=== PATIENT | male | born 1935 | race Caucasian/White ===

== ENCOUNTER 2022-02-27 10:53 | Outpatient (CLI) | payer MEDICARE, SELFPAY ==
[2022-02-27 22:15] LABS: Chloride* 103 mmol/L (96-114)
[2022-02-27 22:16] LABS: Albumin* 4.1 g/dL (3.3-5.0); Potassium* 4.2 mmol/L (3.6-5.1); Sodium* 139 mmol/L (135-149)
[2022-02-27 22:19] LABS: Alanine Aminotransferase* 18 U/L (4-50); Alkaline Phosphatase* 64 U/L (40-150); Aspartate Amino Transferase* 19 U/L (12-35); Bilirubin Total* 0.8 mg/dL (0.1-1.5); Blood Urea Nitrogen* 20 mg/dL (7-30); Calcium* 9.6 mg/dL (8.4-10.6); Carbon Dioxide* 28 mmol/L (20-32); Cholesterol* 120 mg/dL (90-199); Creatinine* 1.2 mg/dL (0.5-1.5); Estimated Glomerular Filt Rate 59 ml/min; Glucose* 136 mg/dL (60-115); Triglycerides* 208 mg/dL (40-149)
[2022-02-27 22:20] LABS: HDL Cholesterol* 29 mg/dL (>=40); LDL Cholesterol Calculated 49 mg/dL (<100)
[2022-02-27 22:29] LABS: Creatinine Urine 123.2 mg/dL
[2022-02-27 22:47] LABS: PSA Screen* 2.34 ng/mL (0.10-4.00)
[2022-02-28 02:45] LABS: Microalbumin Creatinine Ratio 220 mg/g (0-30); Microalbumin Urine 28 mg/dL
== END 2022-02-27 10:54 | disposition home or self-care (01) ==
PROVIDERS: PCP Family Medicine; Visit Provider Family Medicine
DX: Z00.00 Encounter for general adult medical examination without abnormal findings (principal); E11.40 Type 2 diabetes mellitus with diabetic neuropathy, unspecified; E78.00 Pure hypercholesterolemia, unspecified; I10 Essential (primary) hypertension; Z12.5 Encounter for screening for malignant neoplasm of prostate
CPT/HCPCS: 80053; 80061; 82043; 82570; 84153

== ENCOUNTER 2022-07-20 15:17 | Outpatient (CLI) | payer MEDICARE, SELFPAY | END 2022-07-20 15:18 | disposition home or self-care (01) | PROVIDERS: PCP Family Medicine; Visit Provider Family Medicine | DX: R53.83 Other fatigue (principal); D64.9 Anemia, unspecified; I10 Essential (primary) hypertension; E78.00 Pure hypercholesterolemia, unspecified; E11.40 Type 2 diabetes mellitus with diabetic neuropathy, unspecified; M35.3 Polymyalgia rheumatica | CPT/HCPCS: 82306; 82607; 82728; 83540; 84443 ==

== ENCOUNTER 2022-10-30 13:13 | Outpatient (CLI) | payer MEDICARE, SELFPAY | END 2022-10-30 13:14 | disposition home or self-care (01) | LOC: NFLDREF 11-01 09:24 | PROVIDERS: PCP Family Medicine; Referring Provider Family Medicine; Visit Provider Family Medicine | DX: Z00.00 Encounter for general adult medical examination without abnormal findings (principal); R32 Unspecified urinary incontinence; N39.0 Urinary tract infection, site not specified; I10 Essential (primary) hypertension; E11.9 Type 2 diabetes mellitus without complications; C83.10 Mantle cell lymphoma, unspecified site; N41.9 Inflammatory disease of prostate, unspecified; N40.0 Benign prostatic hyperplasia without lower urinary tract symptoms; R53.83 Other fatigue; D64.9 Anemia, unspecified; E78.00 Pure hypercholesterolemia, unspecified; R39.9 Unspecified symptoms and signs involving the genitourinary system | CPT/HCPCS: 82043; 82570; 87086 ==

== ENCOUNTER 2023-02-26 09:06 | Outpatient (CLI) | payer MEDICARE, SELFPAY ==
--- OUTSIDE RECORDS SUMMARY | 2023-02-27 12:03 | XMS_ITS | Continuity of Care Document ---
Author Name Unknown Organization [facility] ic Address [address] [place] [address] Phone Care Team Providers Care Claim Specialist Name Role Phone Marquez HEALY, Chalino Unavailable Unavailable Allergies, Adverse Reactions, Alerts Substance Reaction Status Criticality No Known Allergies Active No Inform ation Medications Medication Instructions Dosage Effective Dates (start - stop) Status Comments Refresh Optive Advanced (PF) 0.5 %-1 %-0.5 % eye drops in dropperette instilled by ophthalmic route into both eyes TID OU. - Active LOSARTAN POTASSIUM (unknown strength) Not Available - Active GLUCOSAMINE-CHONDROI TIN (unknown strength) Not Available - Active DESONIDE (unknown strength) Not Available - Active ATORVASTATIN CALCIUM (unknown strength) Not Available - Active KRILL OIL (unknown strength) Not Available - Active METFORMIN HCL (unknown strength) Not Available - Active Procedures Procedure Date No Charge Visit Refraction OCT-Macular Bilateral Est Extended E&M Refraction Est Extended E&M MICROFLUID LUKE TEARS MICROFLUID LUKE TEARS Est Intermediate E&M Est Intermediate E&M MICROFLUID LUKE TEARS MICROFLUID LUKE TEARS Refraction OCT-Glaucoma Bilateral Est Extended E&M Refraction Comprehensive Eye Code - Established Apr Refraction OCT-Glaucoma Bilateral Corneal Pachymetry-Bilateral Est Intermediate E&M Comprehensive Eye Code - Established Apr Refraction Corneal Pachymetry-Bilateral OCT-Glaucoma Bilateral Advance Directives Directive Yes / No Effective Date File Name No Information Encounters Encounter Description Practice Location Reason(s) For Visit Diagnoses Date Provider Providers Copied on Encounter [facility], [address] [place], [id number] , tel: [phone] [facility] No Information [address] [place], [id number], [place]. [phone] [facility], [address] [place], [id number] , tel: [phone] [facility] eyeglasses, problem (chief complaint) Open angle with borderline findings, low risk, bilateralHyperme tropia of right eyeMyopia of left eyeNonexudative age-related macular degeneration, bilateral, early dry stageType 2 diabetes mellitus without complicationsAge -related nuclear cataract, bilateralCortica l age-related cataract, bilateral [address] [place], [id number], [place]. [phone] Referring Provider: Chalino Rey, [address] [place], [address] . tel:[phone] [facility], [address] [place], [id number] , tel: [phone] [facility] difficulty reading (chief complaint) Type 2 diabetes mellitus without complicationsLon g term (current) use of oral hypoglycemic drugsOpen angle with borderline findings, low risk, bilateralAge-rel ated nuclear cataract, bilateralHyperme tropia, bilateralPinguec didier, left eyeDermatochalas is of eyelid of right eyeDermatochalas is of eyelid of left eyeMeibomian gland dysfunction right eye, upper and lower eyelidsMeibomian gland dysfunction left eye, upper and lower eyelidsCortical age-related cataract, bilateralNonexud ative age-related macular degeneration, bilateral, early dry stageFamily history of other specified eye disorder 0 [address] [place], [id number], [place]. tel:[phone] Referring Provider: Chalino Rey, [address] [place], [address] . tel:[phone] [facility], [address] [place], [place], [id number] , [place] tel: [phone] [facility] difficulty reading (chief complaint) Type 2 diabetes mellitus without complicationsLon g term (current) use of oral hypoglycemic drugsAge-related nuclear cataract, bilateralHyperme tropia, bilateralMeibomi an gland dysfunction right eye, upper and lower eyelidsMeibomian gland dysfunction left eye, upper and lower eyelidsPinguecul a, left eyeCortical age-related cataract of right eyePunctate keratitis, bilateralBenign neoplasm of connective tissue of eyelidOpen angle with borderline findings, low risk, bilateral malvin Allred. [address] [place], [place], [id number], [place]. tel:[phone] Referring Provider: Chalino Rey, [address] [place], [address] . tel:[phone] [facility], [address] [place], [place], [id number] , [place] tel: [phone] [facility] Follow Up (chief complaint) Type 2 diabetes mellitus without complicationsAge -related nuclear cataract, bilateralPreglau coma, unspecified, bilateralDry eye syndrome of bilateral lacrimal glandsAngular blepharoconjunct ivitis, bilateralHyperme tropia, bilateralRegular astigmatism, left eyePresbyopiaPin guecula, left eye Apr- [address] [place], [place], [id number], [place]. tel:[phone] Referring Provider: Chalino Rey, [address] [place], [address] . tel:[phone] [facility], [address], [place], [id number] , [place] tel: [phone] [facility] Blurred VA in OD (chief complaint) Type 2 diabetes mellitus without complicationsPre glaucoma, unspecified, bilateralAge-rel ated nuclear cataract, bilateralDry eye syndrome of bilateral lacrimal glandsAngular blepharoconjunct ivitis, bilateralHyperme tropia, bilateralRegular astigmatism, left eyePresbyopia [address], [place], [address]. tel:[phone] Referring Provider: Donaldo Alcala V, [address] [place], [address]. tel:[phone] [facility], [address], [place], [id number] , tel: [phone] [facility] Annual Diabetic Ocular Exam (chief complaint) Preglaucoma, unspecified, bilateralAge-rel ated nuclear cataract, bilateralType 2 diabetes mellitus without complicationsDry eye syndrome of bilateral lacrimal glandsHypermetro snow, bilateralRegular astigmatism, left eyePresbyopia [address], [place], [address]. tel:[phone] Referring Provider: Donaldo Alcala V, [address] [place], [place], [address]. tel:[phone] [facility], [address], [place], [id number] , tel: [phone] [facility] Annual Diabetic Ocular Exam (chief complaint) Type 2 diabetes mellitus without complicationsAge -related nuclear cataract, bilateralHyperme tropia, bilateralRegular astigmatism, bilateralPresbyo piaPreglaucoma, unspecified, bilateral [address], [place], [address]. tel:[phone] Referring Provider: Donaldo Alcala V, [address] [place], [address]. tel:[phone] [facility], [address], [place], [id number] , tel: [phone] [facility] No Information No Information Family History Family Member Type Diagnosis Age At Onset Problem (finding) Family history of Parki nson's disease Problem (finding) Family history of degenerative disorder of macula Payers Payer name Insurance type Covered libertarian ID Miesha tompkins(s) [employer] Medicare Plans 2019 CI [id number] Social History Type Description Quantity Date Captured Comments Alcohol Use Details Unknown Caffeine Use Details Unknown Tobacco Use Status No Information Smoking Status No Information Sex Male Chief Complaint And Reason For Visit No Information Reason For Referral Reason For Referral No Information History Of Present Illness Encounter Date Complaint History Of Prese nt Illness eyeglasses, problem The 84 year old male presents for evaluation of eyeglasses, problem. Pt states having a hard time reading words on TV screen while watching baseball. TV currently sits at 14 feet from patient. Has a hard time with trifocals, has to tilt head back too much in order to read. Has a pair of OTC readers he prefers for when reading for a period of time. VA OU stable. Screening for COVID-19: Patient reports no close contact with known COVID-19. Patient denies any COVID-19 symptoms or recent travel. Temperature screening within normal limits today. difficulty reading Pt. states DV A and NVA OU gradually decreasing X6 months. Struggles reading fine print. Denies any eye pain or discomfort OU. Screening for COVID-19; Patient reports no close contact with known COVID-19. Patient denies any COVID-19 symptoms or recent travel. Temperature screening within normal limits today. difficulty reading DVA OU stable over the last 1 year. 8 months ago pt. did buy reading glasses for small print when needed because he doesn't like using his tri focals. no pain, does have occasional crustiness OU in corner of eye in am. AT PRN use. PCP: DR. Mcguire A1C: around 7 per pt. Follow Up Pt. c/o burning & photophobia in OU x several months, especially when watching TV & in bright lights. Pt. states VA in OU stable. Pt. has been doing warm compresses, lids scrubs & AT's TID, no relief of symptoms.Exam scribed by Luis Leal. Blurred VA in OD Pt. c/o increas ed blurred D&N VA in OD x several months, VA in OS stable. Pt. c/o burning sensation in OS>OD, using Soothe drops PRN. Pt. has a hard time seeing the captions & words on the TV with OD. Denies pain.Type II DM, per pt A1C really good around 6.5. Annual Diabetic Ocular Exam Pt s morenita DVA OU gradually decreasing over the last year, unable to read the scores on the television, uses his tri-focal for help. Denies pain OU.A1C 6.2 per pt taken this AMBP has been stable good Annual Diabetic Ocular Exam Pt s morenita VA OU stable over the last year. No dryness OU. 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 Impression/Plan Related to Myopi a of left eye Impression/Plan Related to Nonex udative age-related macular degeneration, bilateral, early dry stage Impression/Plan Related to Type 2 diabetes mellitus without complications Impression/Plan Related to Age-r elated nuclear cataract, bilateral Impression/Plan Related to Corti ken age-related cataract, bilateral Impression/Plan Related to Nonex udative age-related macular degeneration, bilateral, early dry stage Impression/Plan Related to Famil y history of other specified eye disorder Impression/Plan Related to Hyper metropia, bilateral Impression/Plan Related to Type 2 diabetes mellitus without complications Impression/Plan 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 Impression/Plan Related to Open angle with borderline findings, low risk, bilateral Impression/Plan Related to Age-r elated nuclear cataract, bilateral Impression/Plan Related to Pingu ecula, left eye Impression/Plan Related to [place]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 Impression/Plan Related to [place]pin tochalasis of eyelid of left eye Impression/Plan Related to Meibo yelena gland dysfunction right eye, upper and lower eyelids Impression/Plan Related to Meibo yelena gland dysfunction left eye, upper and lower eyelids Impression/Plan Related to Corti ken age-related cataract, bilateral Impression/Plan Related to senior care (current) use of oral hypoglycemic drugs Impression/Plan Related to Age-r elated nuclear cataract, bilateral Impression/Plan Related to Hyper metropia, bilateral Impression/Plan Related to Meibo yelena gland dysfunction right eye, upper and lower eyelids Impression/Plan Related to Meibo yelena gland dysfunction left eye, upper and lower eyelids Impression/Plan Related to Pingu ecula, left eye Impression/Plan Related to Corti ken age-related cataract of right eye Impression/Plan Related to Punct ate keratitis, bilateral Impression/Plan Related to 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 Chalino Zayas for dry eye follow up. Impression/Plan Related to Pingu ecula, left eye Impression/Plan - Francisco tobin advised to control BS levels and seek annual DFE to monitor. Results were sent to PCP. Related to Type 2 diabetes mellitus without complications Impression/Plan - Francisco tobin tolerates well and not inclined to have surgery. Will monitor annually. Related to Age-related nuclear cataract, bilateral Impression/Plan - Monitor. Relat ed to Preglaucoma, unspecified, bilateral Impression/Plan - Re commend artificial tears 2-3x/day, dry, hot compresses 2x/day until f/u and erythromycin QHS for 2 weeks. Follow up in 1 month. Consider doxycycline and/or mild steroid at f/u if no improvement. Related to Dry eye syndrome of bilateral lacrimal glands Impression/Plan - See above. Rel ated to Angular blepharoconjunctivitis, bilateral Impression/Plan Related to Hyper metropia, bilateral Impression/Plan Related to Regul ar astigmatism, left eye Impression/Plan Related to Presb yopia Impression/Plan - Monitor. Relat ed to Preglaucoma, unspecified, bilateral Impression/Plan - Pa mahad tolerates well and not inclined to have surgery. Will monitor annually. Related to Age-related nuclear cataract, bilateral Impression/Plan - Re commend artificial tears 2-3x/day. Related to Dry eye syndrome of bilateral lacrimal glands Impression/Plan - Re commend WC & LS bid OU. Recommend Systane Balance or Refresh MEGA3 qid. Discussed Lipiflow as possible therapy later. Related to Angular blepharoconjunctivitis, bilateral Impression/Plan - Bi focal SRx issued Related to Hypermetropia, bilateral Impression/Plan Related to Regul ar astigmatism, left eye Impression/Plan Related to Presb yopia Follow up - Return t o clinic in [address] Donaldo Alcala for annual diabetic eye exam Impression/Plan - Pa mahad advised to control BS levels and seek annual DFE to monitor. Results sent to PCP. Related to Type 2 diabetes mellitus without complications Impression/Plan - Bi focal SRx issued Related to Hypermetropia, bilateral Impression/Plan Related to Regul ar astigmatism, left eye Impression/Plan Related to Presb yopia Follow up - Return t o clinic with Dr. Donaldo Alcala in 1 year for annual eye exam Impression/Plan - Monitor. Relat ed to Preglaucoma, unspecified, bilateral Impression/Plan - Pa tient tolerates well and not inclined to have surgery. Will monitor annually. Related to Age-related nuclear cataract, bilateral Impression/Plan - Pa tient advised to control BS levels and seek annual DFE to monitor. Results sent to PCP. Related to Type 2 diabetes mellitus without complications Impression/Plan - Re commend artificial tears 2-3x/day. Related to Dry eye syndrome of bilateral lacrimal glands Return to clinic in [address] Donaldo Alcala for annual diabetic eye exam Related to Type 2 diabetes mellitus without complications Impression/Plan - Mo nitor annually with exam and periodic OCT Related to Preglaucoma, unspecified, bilateral Follow up - Return t o clinic in [address] Donaldo Alcala for annual diabetic eye exam Related to Type 2 diabetes mellitus without complications Impression/Plan - Pa tient advised to control BS levels and seek annual DFE to monitor. Results sent to PCP. Related to Type 2 diabetes mellitus without complications Impression/Plan - Pa tient tolerates well and not inclined to have surgery. Will monitor annually. Related to Age-related nuclear cataract, bilateral Impression/Plan - Bi focal SRx issued Related to Hypermetropia, bilateral Impression/Plan - Bi focal SRx issued Related to Regular astigmatism, bilateral Impression/Plan - Bi focal SRx issued Related to Presbyopia Assessments Type Assessment Date No Information Patient Care Teams Name Effective Dates (start - stop) Status Members No Information
== END 2023-02-26 09:07 | disposition home or self-care (01) ==
LOC: NFLDREF 02-27 12:01
PROVIDERS: PCP Family Medicine; Referring Provider Family Medicine; Visit Provider Family Medicine
DX: E11.9 Type 2 diabetes mellitus without complications (principal); E78.00 Pure hypercholesterolemia, unspecified; Z12.5 Encounter for screening for malignant neoplasm of prostate
CPT/HCPCS: 80053; 80061; 84153

== ENCOUNTER 2023-05-26 12:19 | Outpatient (CLI) | payer MEDICARE, SELFPAY | END 2023-05-26 12:20 | disposition home or self-care (01) | LOC: RAD 12:20 | PROVIDERS: PCP Family Medicine; Visit Provider Family Medicine | DX: R01.1 Cardiac murmur, unspecified (principal); I51.7 Cardiomegaly; I35.1 Nonrheumatic aortic (valve) insufficiency; I34.0 Nonrheumatic mitral (valve) insufficiency | CPT/HCPCS: 93306 ==

== ENCOUNTER 2023-08-26 13:35 | Outpatient (REF) | payer MEDICARE, SELFPAY ==
--- OUTSIDE RECORDS SUMMARY | 2023-08-26 13:41 | XMS_ITS | Encounter Summary ---
Author Organization [facility] Address [address] [place] [address] Care Team Providers Care Oracle Pl Sql Developer Name Role Phone Elsewhere, Pcp Primary Care Provider Unavailabl e Reason for Visit * Reason Onset Date Comments Results 07/23/2023 Encounter Details Date Type Department Care Team ([facility] st Contact Info) Description 07/23/2023 Clinical Communication Division of Hematology in [place], [place] [address] [place] [phone] Stanley Mei APRN, C.N.P., M.S.N. [address] [place] [address] Results Social History Tobacco Use Types Packs/Day Years Used Date Smoking Tobacco: Former Smokeless Tobacco: Never Nutrition Answer Date Recorded Nutrition: EVOO Fat Source 13 10/16 Nutrition: Servings of Fruits/Vegetables per Day Not on file 10/17/2019 Dental Answer Date Recorded Dental: Regular Dentist Unknown 05/25/19 21 Sex and Gender Information Value Date Recorded Sex Assigned at Not on file Gender Identity Not on file Sexual Orientation Not on file documented as of this encounter Miscellaneous Notes * Telephone Encounter - Delmi Vivas R.N. - 07/23/2023 3:59 PM CDT Spoke with patient's , Dinorah. Instructed patient to take the supplement Vitamin B12 1000 mcg = 1mg. Patient will recheck his CBC w/diff. & Vitamin B12 in one month. Dinorah verbalized understanding. ----- Message from Stanley Mei APRN, C.N.P., M.S.N. sent at 07/23/2023 1:15 PM CDT ----- Please discuss with patient. Could you please let him know his B12 is a little low, he should take oral B12 1 mg po daily? 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
--- OUTSIDE RECORDS SUMMARY | 2023-08-26 13:41 | XMS_ITS | Continuity of Care Document ---
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 It does not include entries that were removed or entered in error. Problem Status Onset Date Problem Type Date of Resolution Comments Source Cancer of skin Active Condition [facility] Essential hypertension Active Condition [facility] Essential hypertension (SNOMED CT 75887395) Active Condition [facility] Gout Active Condition [facility] Gout (SNOMED CT 20293615) Active Condition [facility] Hyperlipidemia Active Condition [facility] Hyperlipidemia (SNOMED CT 78765623) Active Condition [facility] Impotence (SNOMED CT 962103232) Active Condition [facility] Mantle cell lymphoma Active Condition [facility] 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, 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: ZULAY LOCO Comment: stage IV [facility] Microalbuminuric diabetic nephropathy Active Condition [facility] 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 repeat 3 years ([facility])Sep 16, 2012 Entered By: ZULAY LOCO Comment: colonoscopy 09/15/12 normal.....re peat 5yrs [facility] Skin cancer Active Condition [facility] Type 2 diabetes mellitus Active Condition Jan 09, 2021 Entered By: ANNELIESE LARSEN Comment: Diabetic nephropathy [facility] Exostoses * (ICD-9-CM 726.91) Inactive Condition 08/02/2009 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 Medication Details Route Status Patient Instructions Prescription Expires Prescription Number Last Dispense Date Ordering Provider Order Date Order Qty Source AMLODIPINE BESYLATE 2.5MG TAB TAKE TWO TABLETS BY MOUTH EVERY DAY ORALLY ACTIVE Sarah BUSTOS 2022 [facility] ASPIRIN 81MG TAB,CHEWABL E CHEW ONE TABLET BY MOUTH EVERY DAY ORALLY ACTIVE ROQUE LARSEN B 2020 [facility] ASPIRIN 81MG TAB,EC TAKE ONE TABLET BY MOUTH DAILY ORAL ACTIVE PEDRO CASTAÑEDA 2019 [facility] ATORVASTATI N CA 80MG TAB TAKE ONE-HALF TABLET BY MOUTH EVERY DAY ORALLY ACTIVE ROQUE LARSEN B 2020 [facility] ATORVASTATI N CA 80MG TAB TAKE ONE-HALF TABLET BY MOUTH DAILY ORAL ACTIVE CLINT LOCO 2013 [facility] CHONDROITIN /GLUCOSAMIN E CAP/TAB TAKE BY MOUTH DAILY ORAL ACTIVE [facility] 2013 [facility] DESONIDE 0.05% LOTION APPLY ADEQUATE AMOUNT TO AFFECTED AREA PRN TOPICA L ACTIVE Roby INGRAM 2014 [facility] FISH OIL CONC CAP,ORAL TAKE BY MOUTH DAILY ORAL ACTIVE [facility] LOCO 2013 [facility] LOSARTAN 50MG TAB TAKE TWO TABLETS BY MOUTH EVERY DAY ORALLY ACTIVE ROQUE LARSEN B 2020 [facility] [place] POTASSIUM 100MG TAB TAKE ONE TABLET BY MOUTH DAILY ORAL ACTIVE MADIEALEXPEDRO Kaveh 2017 [facility] METFORMIN HCL 500MG 24HR TAB,SA TAKE TWO TABLETS BY MOUTH EVERY DAY ORALLY ACTIVE LEW PETERSROQUE B 2020 [facility] METFORMIN HCL 500MG 24HR TAB,SA TAKE TWO TABLETS BY MOUTH DAILY ORAL ACTIVE SHERRELL PALMER 2015 [facility] MULTIVITAMI N/MINERALS TAB TAKE BY MOUTH DAILY ORAL ACTIVE [facility] LOCO 2013 [facility] Allergies, Adverse Reactions, Alerts Combined list of allergies from Department of [facility] and Veterans Affairs facilities. It does not include entries that were removed or entered in error. Substance Category Reaction Severity Reaction type Status Date Reported Comments Source LISINOPRIL Propensity to adverse reactions to drug (finding) Cough active 07/03/2013 [facility] Immunizations Combined list of available immunizations from the Department of [facility] and [facility] facilities. Immunization Series Date Given Administered By Site Reaction Lot Number CVX Code Drug Sedimentationist Status Comments Source ZOSTER RECOMBINANT 2 2022 LIZZY MCLAUGHLIN LEFT DELTO ID [id number] 187 complet ed ENTER DILUENT LOT# [id number] [facility] COVID-19 ([employer]), MRNA, LNP-S, BIVALENT BOOSTER, PF, 30 MCG/0.3 ML DOSE 1 2022 ZEUS PERALTA WILVER LEFT DELTO ID [id number] 300 complet ed [facility] ZOSTER RECOMBINANT 1 2022 ERIK VILLANUEVA RIGHT DELTO ID [id number] 187 complet ed [id number] [facility] PNEUMOCOCCAL CONJUGATE PCV20, POLYSACCHARID E [id number] CONJUGATE, ADJUVANT, PF 2022 ERIK VILLANUEVA RIGHT DELTO ID [id number] 216 complet ed [facility] TDAP 2022 115 complet ed [facility] INFLUENZA, UNSPECIFIED FORMULATION 2021 88 complet ed [facility] COVID-19 ([employer]), MRNA, LNP-S, PF, 30 MCG/0.3 ML DOSE 3 2021 208 complet ed [facility] COVID-19 (PFIZER), MRNA, LNP-S, PF, 30 MCG/0.3 ML DOSE 3 2020 208 complet ed PFR; [id number]; 2 [facility] INFLUENZA, INJECTABLE, QUADRIVALENT, PRESERVATIVE FREE 2020 150 complet ed [facility] COVID-19 (MODERNA), MRNA, LNP-S, PF, 100 MCG/0.5 ML DOSE 2 2020 207 complet ed [facility] COVID-19 (MODERNA), MRNA, LNP-S, PF, 100 MCG/0.5 ML DOSE 1 2020 207 complet ed [facility] ZOSTER RECOMBINANT 2 2018 187 complet ed [facility] INFLUENZA, HIGH DOSE SEASONAL 2018 135 complet ed [facility] ZOSTER RECOMBINANT 1 2018 187 complet ed [facility] INFLUENZA, SEASONAL, INJECTABLE 2014 141 complet ed [facility] PNEUMOCOCCAL CONJUGATE PCV 13 2014 133 complet ed [facility] INFLUENZA, SEASONAL, INJECTABLE 2013 141 complet ed [facility] TDAP 2013 115 complet ed [employer] lot#[id number] BA exp2014 [facility] ZOSTER LIVE 2013 121 complet ed [employer]lot#[id number] exp2013 [facility] INFLUENZA, UNSPECIFIED FORMULATION 2012 88 complet ed [facility] INFLUENZA, UNSPECIFIED FORMULATION 2010 88 complet ed [facility] INFLUENZA-H1N 1-09, NOVEL (PANDEMIC) (HISTORICAL) 2009 complet ed [facility] INFLUENZA (HISTORICAL) 2008 88 complet ed [facility] TD(ADULT) UNSPECIFIED FORMULATION 2008 139 complet ed [facility] PNEUMOCOCCAL, UNSPECIFIED FORMULATION 2007 109 complet ed [employer] lot#[id number] exp [facility] INFLUENZA, UNSPECIFIED FORMULATION 2007 88 complet ed [facility] INFLUENZA, UNSPECIFIED FORMULATION 2006 88 complet ed [facility] INFLUENZA, UNSPECIFIED FORMULATION 2005 88 complet ed [facility] INFLUENZA, UNSPECIFIED FORMULATION 2004 88 complet ed [facility] INFLUENZA, UNSPECIFIED FORMULATION 2002 88 complet ed [facility] TD(ADULT) UNSPECIFIED FORMULATION 2002 139 complet ed [facility] INFLUENZA, UNSPECIFIED FORMULATION 2001 88 complet ed [facility] TETANUS TOXOID, UNSPECIFIED FORMULATION 1995 112 complet ed [facility] Encounters Combined list of: 1) Encounters from Department of Veterans Affairs facilities going back up to thelast 18 months. 2) Encounters from the Department of [facility] facilities going back up to 280 months. Location Location Details Encounter Type Encounter Number Reason For Visit Attending Provider ADM Date DC Date Status Disposition Source [facility] Outpatient Encounter [id number] 03/22 [facility] OFFICE O/P EST MOD 30-39 MIN [id number] Diagnos is: ICD-10- CM C83.10 Mantle cell lymphom a, unspeci fied site
ROBYN MEYER A 04/02 [facility] ADM SARSCV2 BVL 30MCG/.3ML B [id number] Diagnos is: ICD-10- CM Z23 Encount er for immuniz ation<b r/> BLANCA PERALTA 07/02 [facility] IMMUNIZATI ON ADMIN [id number] Diagnos is: ICD-10- CM Z23 Encount er for immuniz ation<b r/> SALVATORE MCLAUGHLIN 07/02 [facility] Outpatient Encounter [id number] 03/16 [facility] Social History Combined list of available smoking, tobacco, and other social history from Department of Defense and [facility] facilities. Social History Type Response Date Comment Sour e Tobacco smoking status [facility]-TOBAC[facility] FORMER USER 04/02/2022 [facility] History of tobacco use [facility]-TO[facility] QUIT 15 YRS OR MORE 04/02/2022 [facility] History of tobacco use [facility]-TOBACCO FORMER USER 01/09/2021 [facility] History of tobacco use [facility]-TOBACCO FORMER USER 12/07/2019 [facility] History of tobacco use [facility]-TOBACCO QUIT 15 YRS OR MORE 10/18/2018 [facility] History of tobacco use FORMER TOBACCO USER 7Y OR GREATER 08/04/2006 [facility] History of tobacco use LIFETIME NON-SMOKER/QUIT 7 YRS OR> 07/16/2003 [facility] History of tobacco use LIFETIME NON-SMOKER/QUIT 7 YRS OR> 07/21/2002 quit 40 yrs ago [facility] Advance Directives List of completed, amended, or rescinded Advance Directives on record at Department of Veterans Affairs facilities. An actual copy of the Directive is not included. Date Advance Directive Provider Source 09/19/2010 ADVANCE DIRECTIVE DISCUSSION CEZAR SALGUERO [facility] 03/08/2006 [facility]
--- OUTSIDE RECORDS SUMMARY | 2023-08-26 13:41 | XMS_ITS | Encounter Summary ---
Author Organization [facility] Address [address] [place] [address] Care Team Providers Care Fuel Cell Builder Name Role Phone Elsewhere, Pcp Primary Care Provider Unavailabl e Encounter Details Date Type Department Care Team (Latest Contact Info) Description 07/22/2023 6:53 AM CDT - 07/22/2023 11:59 PM CDT Hospital Encounter Department of Laboratory Medicine and Pathology, [facility], in [place], [place] [address] [place] [address] Stanley Mei, DUY, C.N.P., M.S.N. [address] [place] [id number] Lymphoma Mantle Cell (HCC) Discharge Disposition: Home or Self Care Social History Tobacco Use Types Packs/Day Years [...] on file documented as of this encounter Medications at Time of Discharge Medication Sig Dispensed Refills Start Date End Date amLODIPine (NORVASC) 2.5 mg tablet Take 2.5 mg by mouth daily. 02/27/[address] tablet Take 81 mg by mouth daily. atorvastatin (for_LIPITOR) 40 mg tablet Take 1 tablet by mouth every evening. 06/27/2012 blood sugar diagnostic strips TEST DAILY BEFORE BREAKFAST, BEFORE MAIN MEAL AND 2 HOURS AFTER MAIN MEAL, 2-3 DAYS PER WEEK. 04/27/2016 blood-glucose meter misc by not applicable route. 11/08/2017 glucosamine HCl 1,500 mg tablet Take 1 tablet by mouth daily. 02/15/2012 glucosamine/chondr almonte A sod (OSTEO BI-FLEX ORAL) Take 2 capsules by mouth daily. krill oil 500 mg capsule Take 1 capsule by mouth daily. losartan (COZAAR) 100 mg tablet Take 1 tablet by mouth daily. 100 mg 02/18/2016 LUTEIN-ZEAXANTHIN ORAL Take 1 capsule by mouth daily. metFORMIN XR (GLUCOPHAGE-XR) 500 mg 24 hr tablet TAKE 2 TABLETS BY MOUTH EVERY MORNING WITH BREAKFAST. SWALLOW WHOLE, DO NOT BREAK, CRUSH, OR CHEW. 10/27/2018 nyrknmdnupvi-xfgvddqr-XW -lycopene-lutein (Centrum Silver) 0.4-300-250 mg-mcg-mcg tablet Take 1 tablet by mouth daily. 10/15/2020 peg 400/hypromellose/glyceri n (EYE DROP TEARS OPHT) Administer 1 drop into both eyes as needed. Over The Counter Eye Drops tamsulosin (FLOMAX) 0.4 mg 24 hr capsule Take 0.4 mg by mouth daily. 10/30/2022 documented as of this encounter Plan of Treatment Not on file documented as of this encounter Procedures Procedure Name Priority Date/Time Associated Diagnosis Comments CBC WITH DIFFERENTIAL, B Routine 024 7:15 AM CDT Lymphoma Mantle Cell (HCC) ASPARTATE AMINOTRANSFERASE (AST), S/P Routine 07/22/2023 7:15 AM CDT Lymphoma Mantle Cell (HCC) ALKALINE PHOSPHATASE, S/P Routine 07/22/2023 7:15 AM CDT Lymphoma Mantle Cell (HCC) LACTATE DEHYDROGENASE (LD), S Routine 07/22/2023 7:15 AM CDT Lymphoma Mantle Cell (HCC) CREATININE WITH EGFR, S/P Routine 07/22/2023 7:15 AM CDT Lymphoma Mantle Cell (HCC) CALCIUM, TOT, S/P Routine 07/22/2023 7:1 5 AM CDT Lymphoma Mantle Cell (HCC) BILIRUBIN, TOT, S/P Routine 07/22/2023 7 :15 AM CDT Lymphoma Mantle Cell (HCC) documented in this encounter Results * LD (Lactate Dehydrogenase) (07/22/2023 7:15 AM CDT) Lactate Dehydrogenase (LD), S 130 122 - 222 U/L 07/22/2023 8:23 AM CDT DTL Blood (Blood, Venous) 07/22/2023 7:15 AM CDT 07/22/2023 7:54 AM CDT Mario Ron APRNNEse., M.S.N. LAB BLOOD NON ADD-ON Performing Organization Address City/Va Hospital/ZIP Co de Phone Number [facility] [address] [facility] 200 [place] [address] * (ABNORMAL) Creatinine with Estimated GFR (07/22/2023 7:15 AM CDT) Creatinine 1.51(H) 0.74 - 1.35 mg/dL 07/22/2023 8:23 AM CDT DTL Estimated GFR (eGFR) 45(L) >=60 mL/min/BSA 07/22/2023 8:23 AM CDT DTL Comment: Estimated GFR calculated using the 2020 CKD_EPI creatinine equation. Blood (Blood, Venous) 07/22/2023 7:15 AM CDT 07/22/2023 7:54 AM CDT Mario Ron APRNN.P., M.S.N. LAB BLOOD ADD-ON Performing Organization Address City/Va Hospital/ZIP Co de Phone Number [facility] [address] [place] [address], [facility] [place] [address] * (ABNORMAL) CBC with Differential, Blood (07/22/2023 7:15 AM CDT) Hemoglobin 11.6(L) 13.2 - 16.6 g/dL 07/22/2023 7:58 AM CDT DTL Hematocrit 34.7(L) 38.3 - 48.6 % 07/22/2023 7:58 AM CDT DTL Erythrocytes 3.89(L) 4.35 - 5.65 x10(12)/L 07/22/2023 7:58 AM CDT DTL MCV 89.2 78.2 - 97.9 fL 07/22/2023 7:58 AM CDT DTL RBC Distrib Width 13.5 11.8 - 14.5 % 07/22/2023 7:58 AM CDT DTL Platelet Count 243 135 - 317 x10(9)/L 07/22/2023 7:58 AM CDT DTL Leukocytes 6.9 3.4 - 9.6 x10(9)/L 07/22/2023 7:58 AM CDT DTL Neutrophils 3.06 1.56 - 6.45 x10(9)/L 07/22/2023 7:58 AM CDT DHPM Lymphocytes 2.94 0.95 - 3.07 x10(9)/L 07/22/2023 7:58 AM CDT DTL Monocytes 0.72 0.26 - 0.81 x10(9)/L 07/22/2023 7:58 AM CDT DTL Eosinophils 0.09 0.03 - 0.48 x10(9)/L 07/22/2023 7:58 AM CDT DTL Basophils 0.05 0.01 - 0.08 x10(9)/L 07/22/2023 7:58 AM CDT DTL Blood (Blood, Venous) 07/22/2023 7:15 AM CDT 07/22/2023 7:39 AM CDT Stanley Mei APRN, C.N.P., M.S.N. LAB BLOOD ADD-ON [facility] [address] [place], [place] [address] [address] [place] [address] [facility] [address] [place] [address] * Calcium, Total (07/22/2023 7:15 AM CDT) Calcium, Total, S 9.6 8.8 - 10.2 mg/dL 07/22/2023 8:23 AM CDT DTL Blood (Blood, Venous) 07/22/2023 7:15 AM CDT 07/22/2023 7:54 AM CDT Mario Ron APRNNEse., M.S.N. LAB BLOOD ADD-ON [facility] [address] [place], [place] [address] [address] [place] [address] * Bilirubin, Total (07/22/2023 7:15 AM CDT) Bilirubin, Total, S 0.4 0.0 - 1.2 mg/dL 07/22/2023 8:23 AM CDT DTL Blood (Blood, Venous) 07/22/2023 7:15 AM CDT 07/22/2023 7:54 AM CDT Jessica Ron APRN.N.Effie., M.S.N. LAB BLOOD ADD-ON [facility] [address] [place] [address], [facility] [address] [place] [address] * AST (Aspartate Aminotransferase) (07/22/2023 7:15 AM CDT) Aspartate Aminotransferase (AST), S 13 8 - 48 U/L 07/22/2023 8:23 AM CDT DTL Blood (Blood, Venous) 07/22/2023 7:15 AM CDT 07/22/2023 7:54 AM CDT Stanley Mei APRN, C.N.P., M.S.N. LAB BLOOD ADD-ON Performing Organization Address City/[facility] Hospital/ZIP Co de Phone Number [facility] [address] [place] [address], [facility] [address] [place] [address] * Alkaline Phosphatase (07/22/2023 7:15 AM CDT) Alkaline Phosphatase, S 44 40 - 129 U/L 07/22/2023 8:23 AM CDT DTL Blood (Blood, Venous) 07/22/2023 7:15 AM CDT 07/22/2023 7:54 AM CDT Stanley Mei APRN, C.N.P., M.S.N. 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
--- OUTSIDE RECORDS SUMMARY | 2023-08-26 13:41 | XMS_ITS | Encounter Summary ---
Author Organization [facility] Address [address] [address] Phone Care Team Providers Care Asic Engineer Name Role Phone Radha Chaudhry RN Unavailable [phone] Karl Mcguire MD Unavailable [phone] Radha Chaudhry RN Unavailable [phone] Encounter Details Date Type Department Care Team (Late st Contact Info) Description 05/06/2017 Scanned - Medical Reports [facility] [address] [place] [address] Elsewhere, Pcp Social History Tobacco Use Types Packs/Day Years Used Date Smoking Tobacco: Former Cigarettes 1 2 1 962 - 1964 Smokeless Tobacco: Never Alcohol Use Standard Drinks/Week Comments Yes 0 (1 standard drink = 0.6 oz pure alcohol) cocktail most fridays and occ beer the same night Sex and Gender Information Value Date Recorded Sex Assigned at Not on file Gender Identity Not on file Sexual Orientation Not on file Job Start Date Occupation Industry Not on file Not on file Not on file documented as of this encounter Functional Status Functional Status Response Date of Assess ment Patient's Vision Adequate to Safely Complete Daily Activities Yes 03/18/2016 Patient's Memory Adequate to Safely Complete Daily Activities Yes 03/18/2016 Cognitive Status Response Date of Assessm ent Patient's Judgment Adequate to Safely Complete Daily Activities Yes 03/18/2016 documented as of this encounter Plan of Treatment Not on file documented as of this encounter Procedures Procedure Name Priority Date/Time Associated Diagnosis Comments EYE EXAM ESTABLISHED PATIENT COMPREHENSIVE Routine 04/13/2017 documented in this encounter Results * EYE EXAM & TREATMENT (04/13/2017) Pcp Elsewhere EC PROCEDURES documented in this encounter Visit Diagnoses Not on filedocumented in this encounter Care Teams Asic Engineer Relationship Specialty Start Date End Date Radha Chaudhry RN RN 06/26/11 Karl Mcguire MD [address] [place] [phone] Internal Medicine 09/16/11 Radha Chaudhry RN Command And Control Officer 12/12/21 documented as of this encounter
--- OUTSIDE RECORDS SUMMARY | 2023-08-26 13:41 | XMS_ITS | Continuity of Care Document ---
Author Organization [facility] Address [address] [place] [address] Phone Care Team Providers Care Service Desk Team Lead Name Role Phone Marquez HEALY, Chalino Unavailable [...] Est Extended E&M MICROFLUID LUKE TEARS MICROFLUID ULKE TEARS Est Intermediate E&M Est Intermediate E&M [...] Diagnoses Date Provider Providers Copied on Encounter [facility], [address] [place], [id number] , tel: [phone] [facility] No Information [address] [place], [id number], [place]. [phone] [facility], [address] [place], [id number] , tel: [phone] [facility] eyeglasses, problem (chief complaint) Open angle with borderline findings, low risk, bilateralHyperme tropia of right eyeMyopia of left eyeNonexudative age-related macular degeneration, bilateral, early dry stageType 2 diabetes mellitus without complicationsAge -related nuclear cataract, bilateralCortica l age-related cataract, bilateral [address] [place], [id number], [place]. tel:[phone] Referring Provider: Chalino Rey, [address] [place], [address] . tel:[phone] [facility], [address] [place], [id number] , tel: [phone] [facility] difficulty reading (chief complaint) Type [...] Allred. [address] [place], [id number], [place]. tel:[phone] Referring Provider: Chalino Rey, [address] [place], [address] . tel:[phone] [facility], [address] [place], [place], [id number] , [place] tel: [phone] [facility] difficulty reading (chief complaint) Type [...] angle with borderline findings, low risk, bilateral Marquez Allred. [address] [place], [place], [id number], [place]. tel:[phone] Referring Provider: Chalino Rey, [address] [place], [address] . tel:[phone] [facility], [address] [place], [place], [place], [id number] , [place] tel: [phone] [facility] Follow Up (chief complaint) Type 2 diabetes mellitus without complicationsAge -related nuclear cataract, bilateralPreglau coma, unspecified, bilateralDry eye syndrome of bilateral lacrimal glandsAngular blepharoconjunct ivitis, bilateralHyperme tropia, bilateralRegular astigmatism, left eyePresbyopiaPin guecula, left eye Apr- [address] [place], [place], [id number], [place]. tel:[phone] Referring Provider: Chalino Rey, [address] [place], [address] . tel:[phone] [facility], [address], [place], [id number] , tel: [phone] [facility] Blurred VA in OD (chief complaint) Type 2 diabetes mellitus without complicationsPre glaucoma, unspecified, bilateralAge-rel ated nuclear cataract, bilateralDry eye syndrome of bilateral lacrimal glandsAngular blepharoconjunct ivitis, bilateralHyperme tropia, bilateralRegular astigmatism, left eyePresbyopia [address], [place], [address]. tel:[phone] Referring Provider: Donaldo Alcala V, [address] [place], [address]. tel:[phone] [facility], [address], [place], [id number] , tel: [phone] [facility] Annual Diabetic Ocular Exam (chief complaint) Preglaucoma, unspecified, bilateralAge-rel ated nuclear cataract, bilateralType 2 diabetes mellitus without complicationsDry eye syndrome of bilateral lacrimal glandsHypermetro snow, bilateralRegular astigmatism, left eyePresbyopia [address], [place], [address]. tel:[phone] Referring Provider: Donaldo Alcala V, [address] [place], [place], [address]. tel:[phone] [facility] [address] [facility], [address], [place], [id number] , tel: [phone] [facility] Annual Diabetic Ocular Exam (chief complaint) Type 2 diabetes mellitus without complicationsAge -related nuclear cataract, bilateralHyperme tropia, bilateralRegular astigmatism, bilateralPresbyo piaPreglaucoma, unspecified, bilateral Apr- [address], [place], [address]. tel:[phone] Referring Provider: Donaldo Alcala V, [address] [place], [address]. tel:[phone] [facility], [address], [place], [id number] , [place] tel: [phone] [facility] No Information No Information Family History Family Member Type Diagnosis Age At Onset Problem (finding) Family history of Parki nson's disease Problem (finding) Family history of degenerative disorder of macula Payers Payer name Insurance type Covered constitution party ID Miesha tompkins(s) [employer] Medicare Plans 2019 CI [id number] Social History Type Description Quantity Date Captured [...] No Information Instructions Date Instruction Additional Infor jameeion Impression/Plan Related to Open angle with borderline [...] diabetes mellitus without complications Impression/Plan Related to FDC (current) use of oral hypoglycemic drugs Impression/Plan Related to Open angle with borderline findings, low risk, bilateral Impression/Plan Related to Age-r elated nuclear cataract, bilateral Impression/Plan Related to Pingu ecula, left eye Impression/Plan Related to [place] tochalasis of eyelid of right eye Impression/Plan Related to [place] tochalasis of eyelid of left eye Impression/Plan Related to [place] yelena gland dysfunction right eye, upper and lower eyelids Impression/Plan Related to [place]elena gland dysfunction left eye, upper and lower eyelids Impression/Plan Related to Corti ken age-related cataract, bilateral Impression/Plan Related to FDC (current) use of oral hypoglycemic drugs Impression/Plan [...] findings, low risk, bilateral Impression/Plan Related to Pingu ecula, left eye Impression/Plan - Pa mahad advised to control BS levels and seek annual DFE to monitor. Results were sent to PCP. Related to Type 2 diabetes mellitus without complications Impression/Plan - Pa mahad tolerates well and [...] to Presb yopia Follow up - Return i n [address] Chalino Zayas for dry eye follow up. Impression/Plan - Monitor. Relat ed to Preglaucoma, [...] Impression/Plan Related to Presb yopia Impression/Plan - Pa tient advised to control BS levels and seek annual DFE to monitor. Results sent to PCP. Related to Type 2 diabetes mellitus without complications Follow up - Return t o clinic in [address] Donaldo Alcala for annual diabetic eye exam Impression/Plan - Bi focal SRx issued Related [...] Dry eye syndrome of bilateral lacrimal glands Follow up - Return t o clinic with Dr. Donaldo Alcala in 1 year for annual eye exam Return to clinic in [address] Donaldo Alcala for annual diabetic eye exam Related to Type 2 diabetes mellitus without complications Impression/Plan - Mo nitor annually with exam and periodic OCT Related to Preglaucoma, unspecified, bilateral Impression/Plan - Pa tient advised to [...] Bi focal SRx issued Related to Presbyopia Follow up - Return t o clinic in [address] Donaldo Alcala for annual diabetic eye exam Related to Type 2 diabetes mellitus without complications Assessments Type Assessment Date No Information Patient Care Teams Name Effective Dates (start - stop) Status Members No Information
--- OUTSIDE RECORDS SUMMARY | 2023-08-26 13:41 | XMS_ITS ---
Author Organization [facility] Address [address] [place] [address] Care Team Providers Care Senior Tax Specialist Name Role Phone Unavailable Unavailable Unavailable Surgery Details Not on file Complications Check Surgery Details section. Procedure Estimated Blood Loss Check Surgery Details section. Procedure Findings Check Surgery Details section. Procedure Specimens Taken Check Surgery Details section.
--- OUTSIDE RECORDS SUMMARY | 2023-08-26 13:41 | XMS_ITS | Encounter Summary ---
Author Organization [facility] Address [address] [address] Phone Care Team Providers Care Netsuite Consultant Name Role Phone Radha Chaudhry RN Unavailable [phone] Karl Mcguire MD Unavailable [phone] Radha Chaudhry RN Unavailable [phone] Encounter Details Date Type Department Care Team (Late st Contact Info) Description 05/19/2018 Scanned - Medical Reports [facility] [address] [place] [address] Abstract, Provider, Social History Tobacco Use Types Packs/Day Years Used Date Smoking Tobacco: Former Cigarettes 1 2 1 962 - 1964 Smokeless Tobacco: Never Alcohol Use Standard Drinks/Week Comments Yes 0 (1 standard drink = 0.6 oz pure alcohol) cocktail most fridays and occ beer the same night PHQ-2 Answer Date Recorded PHQ-2 Score 0 01/09/2018 Sex and Gender Information Value Date Recorded [...] Comments EYE EXAM ESTABLISHED PATIENT COMPREHENSIVE Routine 05/10/2018 documented in this encounter Results * EYE EXAM & TREATMENT (05/10/2018) Provider Abstract MD MAYER PROCEDURES documented in this encounter Visit Diagnoses Not on filedocumented in this encounter Care Teams Netsuite Consultant Relationship Specialty Start Date End Date Radha Chaudhry RN RN 06/26/11 Karl Mcguire MD [address] [place] [address] Internal Medicine 09/16/11 Radha Chaudhry RN Ob Scrub Tech 12/12/21 documented as of this encounter
--- OUTSIDE RECORDS SUMMARY | 2023-08-26 13:41 | XMS_ITS | Encounter Summary ---
Author Organization [facility] Address [address] [address] Phone Care Team Providers Care Coal Hauler Name Role Phone Radha Chaudhry RN Unavailable [phone] Karl Mcguire MD Unavailable [phone] Radha Chaudhry RN Unavailable [phone] Encounter Details Date Type Department Care Team (Late st Contact Info) Description 01/25/2017 Scanned - Medical Reports [facility] [address] [place] [address] Elsewhere, Pcp Social History Tobacco [...] Procedure Name Priority Date/Time Associated Diagnosis Comments OUTSIDE LAB Routine 10/28/2016 documented in this encounter Results * OUTSIDE LAB (10/28/2016) Pcp Elsewhere [facility] documented in this encounter Visit Diagnoses Not on filedocumented in this encounter Care Teams Coal Hauler Relationship Specialty Start Date End Date Radha Chaudhry RN RN 06/26/11 Karl Mcguire MD [address] [place] [address] Internal Medicine 09/16/11 Radha Chaudhry RN Airport Operations Specialist 12/12/21 documented as of this encounter
--- OUTSIDE RECORDS SUMMARY | 2023-08-26 13:41 | XMS_ITS | Clinical Summary ---
Author Organization [facility] Address [address] [place] [address] Care Team Providers Care Stage Electrician Name Role Phone Elsewhere, Pcp Primary Care Provider Unavailabl e Source Comments Patient records contain information from all sites at [facility]. For routine questions regarding patient records, call [phone] during business hours, M-F 8:00 AM - 5:00 PM Central Time. Record requests for emergency care only can be directed to [phone] at any time.[facility] Allergies Active Allergy Reactions Criticality Noted Date Comments Iodinated Contrast Media Nausea And Vomiting 09/04/2015 Also pain in chest Vancomycin Rash 11/13/2009 Itching,Pruritus,Pee ling, and Swelling as well Vancomycin Hcl Rash Medium 08/21/2010 Itching, swelling, peeling Medications Medication Sig Dispensed Refills Start Date End Date Status atorvastatin (for_LIPITOR) 40 mg tablet Take 1 tablet by mouth every evening. 06/27/2012 Active losartan (COZAAR) 100 mg tablet Take 1 tablet by mouth daily. 100 mg 02/18/2016 Active blood sugar diagnostic strips TEST DAILY BEFORE BREAKFAST, BEFORE MAIN MEAL AND 2 HOURS AFTER MAIN MEAL, 2-3 DAYS PER WEEK. 04/27/2016 Active blood-glucose meter misc by not applicable route. 11/08/2017 Active krill oil 500 mg capsule Take 1 capsule by mouth daily. Active metFORMIN XR (GLUCOPHAGE-XR) 500 mg 24 hr tablet TAKE 2 TABLETS BY MOUTH EVERY MORNING WITH BREAKFAST. SWALLOW WHOLE, DO NOT BREAK, CRUSH, OR CHEW. 10/27/2018 Active glucosamine HCl 1,500 mg tablet Take 1 tablet by mouth daily. 02/15/[address] tablet Take 81 mg by mouth daily. Active multivitamin-mineral t-OU-oqlbvapk-lutein (Centrum Silver) 0.4-300-250 mg-mcg-mcg tablet Take 1 tablet by mouth daily. 10/15/2020 Active amLODIPine (NORVASC) 2.5 mg tablet Take 2.5 mg by mouth daily. 02/27/2022 Active tamsulosin (FLOMAX) 0.4 mg 24 hr capsule Take 0.4 mg by mouth daily. 10/30/2022 Active glucosamine/chondr almonte A sod (OSTEO BI-FLEX ORAL) Take 2 capsules by mouth daily. Active LUTEIN-ZEAXANTHIN ORAL Take 1 capsule by mouth daily. Active peg 400/hypromellose/gly cerin (EYE DROP TEARS OPHT) Administer 1 drop into both eyes as needed. 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 Results 07/22/2023 11:00 AM CDT Office Visit Division of Hematology in [place], [place] [address] [place] [phone] Stanley Mei APRN, C.N.P., M.S.N. Lymphoma Mantle Cell (HCC) (Primary Dx); Anemia; Mass Kidney 07/22/2023 6:53 AM CDT - 07/22/2023 11:59 PM CDT Hospital Encounter Department of Laboratory Medicine and Pathology, [facility], in [place], [place] [address] [place] [phone] Stanley Mei APRN, C.N.P., M.S.N. Lymphoma Mantle Cell (HCC) Discharge Disposition: Home or Self Care 07/20/2023 8:15 AM CDT Clinical Communication Virtual Review in [place], [place] [address] [place] [phone] Pre-visit Intake from Last 3 Months Immunizations Name Administration Dates Next Due H1N1 All Forms 01/30/2009 Influenza Split 12/20/2012,12/21/2011,12/20/2010 ,01/20/2009 PPSV23 03/22/2007 Td, (Adult) Unspecified 2008 Tdap 08/21/2007 Family History Medical History Relation Name Comments Hypertension Other siblings Relation Name Status Comments Other siblings Alive Social History Tobacco Use Types Packs/Day Years Used Date Smoking Tobacco: Former Smokeless Tobacco: Never Tobacco Cessation:Counseling Given: Not Answered Nutrition Answer Date Recorded Nutrition: EVOO Fat Source 13 10/16 Nutrition: Servings of Fruits/Vegetables per Day Not on file 10/17/2019 Dental Answer Date Recorded Dental: Regular Dentist Unknown 05/25/19 21 Sex and Gender Information Value Date Recorded Sex Assigned at Not on file Gender Identity Not on file Sexual Orientation Not on file Last Filed Vital Signs Vital Sign Reading Time Taken Comments Blood Pressure 136/81 07/22/2023 10:51 AM CDT Pulse 78 07/22/2023 10:51 AM CDT Temperature 36.6 ??C (97.9 ??F) 07/22/2023 10:51 AM C DT Respiratory Rate 20 02/05/2012 8:42 AM MAILROOM CLERK Oxygen Saturation 96% 07/22/2023 10:51 AM CDT Inhaled Oxygen Concentration - - Weight 82.2 kg (181 lb 3.5 oz) 07/22/2023 10:51 AM CDT Height 177.9 cm (5' 10.04) 07/22/2023 10:51 AM CDT Body Mass Index 25.97 07/22/2023 10:51 AM CDT Plan of Treatment Health Maintenance Due Date Last Done Comments Diabetic Office Visit with Foot Exam 1936 Urine Albumin 1936 Hepatitis B Vaccines (1 of 3 - Risk 3-dose series) 1996 Hemoglobin A1C 10/20/2016 04/22/2016 (Perf ormed elsewhere) Dilated Eye Exam 09/06/2020 09/07/2019, 05/10/2018 Sodium Level 06/25/2021 06/25/2020, 08/05/2019, 04/27/2019, Additional history exists Potassium Level 10/27/2022 10/27/2021, 04/0 08/2020, 11/02/2019, Additional history exists Depression Screening (Annual PHQ-2) 03/22/2023 Fall Risk Screen (Annual) 03/22/2023 COVID-19 Vaccine (7 - season) 2023 03/04/2023, 07/02/2022, 10/02/2021, Additional history exists Creatinine Level (Kidney Function Test) 07/21/2024 07/22/2023, 12/29/2022, 04/21/2022, Additional history exists DTaP,Tdap,and Td Vaccines (7 - Td or Tdap) 03/22/2032 03/22/2022, 02/27/2022, 07/03/2013, Additional history exists Pneumococcal vaccine (65+ years) Completed 04/02/2022, 11/20/2014, 11/01/2014, Additional history exists Zoster Vaccines Completed 07/02/2022, 03/22, 02/14/2019, Additional history exists Influenza Vaccine Completed 01/05/2023, , 01/09/2021, Additional history exists HPV Vaccines Aged Out No longer eligi ble based on patient's age to complete this topic Medical Devices Implanted Type Area Data Typist Device Identifier Shelf Expiration Date Model / Serial / Lot Conversions - Default Historical Implant Device Implanted:09/08 (Quantity not on file) Hip Implant Description:Device Status Te xt - Hip Imp. Ocular Lens Ocular Lens Bilatera l: Eye Description:Cataract surgery on both eyes Procedures Procedure Name Priority Date/Time Associated Diagnosis Comments LACTATE DEHYDROGENASE (LD), S Routine 07/22/2023 7:15 AM CDT Lymphoma Mantle Cell (HCC) CREATININE WITH EGFR, S/P Routine 07/22/2023 7:15 AM CDT Lymphoma Mantle Cell (HCC) CBC WITH DIFFERENTIAL, B Routine 024 7:15 AM CDT Lymphoma Mantle Cell (HCC) CALCIUM, TOT, S/P Routine 07/22/2023 7:1 5 AM CDT Lymphoma Mantle Cell (HCC) BILIRUBIN, TOT, S/P Routine 07/22/2023 7 :15 AM CDT Lymphoma Mantle Cell (HCC) ASPARTATE AMINOTRANSFERASE (AST), S/P Routine 07/22/2023 7:15 AM CDT Lymphoma Mantle Cell (HCC) ALKALINE PHOSPHATASE, S/P Routine 07/22/2023 7:15 AM CDT Lymphoma Mantle Cell (HCC) VITAMIN B12 ASSAY, S Routine 07/22/2023 7:12 AM CDT FOLATE, S Routine 07/22/2023 7:12 AM CDT RETICULOCYTES, B Routine 07/22/2023 7:12 AM CDT Anemia FERRITIN, S Routine 07/22/2023 7:12 AM CDT Anemia POTASSIUM, S/P Routine 10/27/2021 7:20 AM CDT Lymphoma Mantle Cell (HCC) EXTI COMPREHENSIVE METABOLIC PANEL, S/P Routine 06/25/2020 9:17 AM CDT from Last 3 Months or Most Recently Relevant to Health Maintenance Results * (ABNORMAL) CBC with Differential, Blood (07/22/2023 7:15 AM CDT) [facility] Hemoglobin 11.6(L) 13.2 - 16.6 g/dL 07/22/2023 [...] 7:15 AM CDT 07/22/2023 7:39 AM CDT Jessica Ron APRN.NEse., M.S.N. LAB BLOOD ADD-ON [facility] [address] [place] [address], [facility] DTL [facility] [address] [place] [address] [facility] [address] [place] [address] * AST (Aspartate Aminotransferase) (07/22/2023 7:15 AM CDT) Aspartate Aminotransferase (AST), S 13 8 - 48 U/L 07/22/2023 8:23 AM CDT DTL Blood (Blood, Venous) 07/22/2023 7:15 AM CDT 07/22/2023 7:54 AM CDT Jessica Ron APRN.N.Effie., M.S.N. LAB BLOOD ADD-ON [facility] [address] [place] [address], [facility] [address] [place] [address] * Alkaline Phosphatase (07/22/2023 7:15 AM CDT) Alkaline Phosphatase, S 44 40 - 129 U/L 07/22/2023 8:23 AM CDT DTL Blood (Blood, Venous) 07/22/2023 7:15 AM CDT 07/22/2023 7:54 AM CDT Stanley Mei APRN, C.N.P., M.S.N. LAB BLOOD ADD-ON [facility] [address] [place] [address], [facility] [address] [place] [address] * LD (Lactate Dehydrogenase) (07/22/2023 7:15 AM CDT) Lactate Dehydrogenase (LD), S 130 122 - 222 U/L 07/22/2023 8:23 AM CDT DTL Blood (Blood, Venous) 07/22/2023 7:15 AM CDT 07/22/2023 7:54 AM CDT Mario Ron APRNNEse., M.S.N. LAB BLOOD NON ADD-ON [facility] [address] [place] [address], [facility] [address] [place] [address] * (ABNORMAL) Creatinine with Estimated GFR (07/22/2023 7:15 AM CDT) Creatinine 1.51(H) 0.74 - 1.35 mg/dL 07/22/2023 8:23 AM CDT DTL Estimated GFR (eGFR) 45(L) >=60 mL/min/BSA 07/22/2023 8:23 AM CDT DT Comment: Estimated GFR calculated using the 2020 CKD_EPI creatinine equation. Blood (Blood, Venous) 07/22/2023 7:15 AM CDT 07/22/2023 7:54 AM CDT Stanley Mei APRN, C.N.P., M.S.N. LAB BLOOD ADD-ON [facility] [address] [place] [address], [facility] [address] [place] [address] * Calcium, Total (07/22/2023 7:15 AM CDT) Calcium, Total, S 9.6 8.8 - 10.2 mg/dL 07/22/2023 8:23 AM CDT DT Blood (Blood, Venous) 07/22/2023 7:15 AM CDT 07/22/2023 7:54 AM CDT Stanley Mei APRN, C.N.P., M.S.N. LAB BLOOD ADD-ON Performing Organization Address City/[facility]/ZIP Co de Phone Number [facility] [address] [place] [address], [facility] [address] [place] [address] * Bilirubin, Total (07/22/2023 7:15 AM CDT) Bilirubin, Total, S 0.4 0.0 - 1.2 mg/dL 07/22/2023 8:23 AM CDT DTL Blood (Blood, Venous) 07/22/2023 7:15 AM CDT 07/22/2023 7:54 AM CDT Stanley Mei APRN, C.N.P., M.S.N. LAB BLOOD ADD-ON [facility] [address] [place], [place] [address] [address] [place] [address] * Reticulocytes (07/22/2023 7:12 AM CDT) Reticulocytes, B 1.29 0.60 - 2.71 % 07/22/2023 11:51 AM CDT DTL Absolute Reticulocyte 49.5 30.4 - 110.9 x10(9)/L 07/22/2023 11:51 AM CDT DTL Blood (Blood, Venous) 07/22/2023 7:12 AM CDT 07/22/2023 11:34 AM CDT Mario Ron APRNNEse., M.S.N. LAB BLOOD ADD-ON Performing Organization Address City/[facility]/ZIP Co de Phone Number [facility] [address] [place], [place] [id number] [place] [address] [address] [place] [address] * Folate (07/22/2023 7:12 AM CDT) Folate, S >20.0 >=4.0 mcg/L 07/23/2023 9: 21 AM CDT DTL Blood 07/22/2023 7:12 AM CDT 07/22/2023 11:42 AM CDT Jessica Ron APRN.N.P., M.S.N. LAB BLOOD ADD-ON [facility] [address] [place], [place] [phone] [place] [address] [address] [place] [address] * Ferritin (07/22/2023 7:12 AM CDT) Ferritin, S 72 31 - 409 mcg/L 07/22/2023 12:19 PM CDT DTL Blood (Blood, Venous) 07/22/2023 7:12 AM CDT 07/22/2023 11:42 AM CDT Stanley Mei APRN, C.N.P., M.S.N. LAB BLOOD ADD-ON Performing Organization Address City/[facility] Co de Phone Number [facility] [address] [place], [place] [address] [address] [place] [address] * (ABNORMAL) Vitamin B12 Assay (07/22/2023 7:12 AM CDT) Vitamin B12 Assay, S 156(L) 180 - 914 ng/L 07/23/2023 9:22 AM CDT DT Comment: ----ADDITIONAL INFORMATION---- In patients being evaluated for vitamin B12 deficiency who have intrinsic factor blocking antibodies (IFBA), false elevations of B12 may occur due to IFBA interference thus potentially obscuring a physiological deficiency of B12. If observed B12 concentrations are discordant with clinical presentation, measurement of methylmalonic acid (MMA) should be considered. Blood 07/22/2023 7:12 AM CDT 07/22/2023 11:42 AM CDT Stanley Mei APRN, C.N.P., M.S.N. LAB BLOOD ADD-ON Performing Organization Address City/[facility]/ZIP Co de Phone Number [facility] [address] [place] [address], [facility] [address] [place] [address] * Potassium (10/27/2021 7:20 AM CDT) Potassium, S 4.8 3.6 - 5.2 mmol/L 10/27/2021 8:25 AM CDT DTL Blood (Blood, Venous) 10/27/2021 7:20 AM CDT 10/27/2021 8:05 AM CDT Stanley Mei APRN, C.N.P., M.S.N. 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 See document viewer. Care Teams Stage Electrician Relationship Specialty Start Date End Date Elsewhere, Pcp PCP - General Internal Medicine 07/20/23
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
--- OUTSIDE RECORDS SUMMARY | 2023-08-26 13:41 | XMS_ITS | Encounter Summary ---
Author Organization [facility] Address [address] [place] [address] Care Team Providers Care Manufacturing Millwright Name Role Phone Elsewhere, Pcp Primary Care Provider Unavailabl e Reason for Referral * MRI/CAT/PET Scan (Routine) - Pending Review Specialty Diagnoses / Procedures Referred By Contac t Referred To Contact Radiology Diagnoses Lymphoma Mantle Cell (HCC) Procedures CT Abdomen Pelvis without IV Contrast Stanley Mei APRN, C.N.Jahaira, M.S.N. [address] [place] [phone] [facility] Referral ID Status Reason Start Date Expiration Date V isits Requested Visits Authorized [id number] Pending Review 07/30/2023 07/29/2024 1 1 * MRI/CAT/PET Scan (Routine) - Pending Review Specialty Diagnoses / Procedures Referred By Contac t Referred To Contact Radiology Diagnoses Lymphoma Mantle Cell (HCC) Procedures CT Chest without IV Contrast Stanley Mei APRN, C.N.Effie., M.S.N. [address] [place] [phone] [facility] Referral ID Status Reason Start Date Expiration Date V isits Requested Visits Authorized [id number] Pending Review 07/30/2023 07/29/2024 1 1 * Outpatient (Routine) - Authorized Specialty Diagnoses / Procedures Referred By Nyla marinelli Referred To Contact Hematology Oncology Diagnoses Lymphoma Mantle Cell (HCC) Stanley Mei APRN, C.N.P., M.S.N. [address] [place] [phone] [facility] Referral ID Status Reason Start Date Expiration Date V isits Requested Visits Authorized [id number] Authorized 07/30/2023 01/28/2025 1 1 Scheduling Instructions Week April 03 Reason for Visit * Outpatient (Routine) - Closed Specialty Diagnoses / Procedures Referred By Nyla marinelli Referred To Contact Hematology Oncology Diagnoses Lymphoma Mantle Cell (HCC) Stanley Mei APRN, C.NEna, M.S.N. [address] [place] [phone] [facility] Referral ID Status Reason Start Date Expiration Date Visits Re quested Visits Authorized [id number] Closed 01/10/2023 01/09/2026 1 1 Encounter Details Date Type Department Care Team (Late st Contact Info) Description 07/22/2023 11:00 AM CDT Office Visit Division of Hematology in [place], [place] [address] [place] [phone] Stanley Mei APRN, C.N.Jahaira, M.S.N. [address] [place] [phone] Lymphoma Mantle Cell (HCC) (Primary Dx); Anemia; Mass Kidney Social History Tobacco Use Types Packs/Day Years Used Date Smoking Tobacco: Former Smokeless Tobacco: Never Nutrition Answer Date Recorded Nutrition: EVOO Fat Source 13 10/16 Nutrition: Servings of Fruits/Vegetables per Day Not on file 10/17/2019 Dental Answer Date Recorded Dental: Regular Dentist Unknown 03/05/20 21 Sex and Gender Information Value Date Recorded Sex Assigned at Not on file Gender Identity Not on file Sexual Orientation Not on file documented as of this encounter Last Filed Vital Signs Vital Sign Reading Time Taken Comments Blood Pressure 136/81 07/22/2023 10:51 AM CDT Pulse 78 07/22/2023 10:51 AM CDT Temperature 36.6 ??C (97.9 ??F) 07/22/2023 10:51 AM C DT Respiratory Rate - - Oxygen Saturation 96% 07/22/2023 10:51 AM CDT Inhaled Oxygen Concentration - - Weight 82.2 kg (181 lb 3.5 oz) 07/22/2023 10:51 AM CDT Height 177.9 cm (5' 10.04) 07/22/2023 10:51 AM CDT Body Mass Index 25.97 07/22/2023 10:51 AM CDT documented in this encounter Progress Notes * Stanley Mei APRN, C.N.P., M.S.N. 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 Álvarez is a delightful 87 y.o. male who returns with his for a scheduled appointment. Heis now 14 years out from diagnosis of mantle cell lymphoma, and nearly 12 years out from completionof maintenance rituximab. He has been doing well with no fevers, night sweats, unintentional weightloss, hospitalizations, or lymphadenopathy. Generally he feels well but has been noticing more fatigue and some shortness of breath with exertion. In April he had preop testing for cataract surgery and was found to have PVCs on ECG in addition to heart murmur for which he underwent an echo and had follow up at [facility]. He was told he has mild aortic stenosis and plans are to repeatecho at follow up in 1 year. He has been taking OTC iron supplements which caused nausea, so he cutback to every other day. Denies hematuria, hematochezia, or melena. He and his continue to enjoy spending time with their family and are proud to share they are expecting a 13th great grandchild. OBJECTIVE PHYSICAL EXAM Constitutional General: He is not in acute distress. Appearance: Normal appearance. He is well-developed. He is not ill-appearing, toxic-appearing or diaphoretic. HENT Head: Normocephalic and atraumatic. Mouth/Throat: Mouth: Mucous membranes are moist. Pharynx: Oropharynx is clear. Eyes General: No scleral icterus. Cardiovascular Rate and Rhythm: Normal rate and regular rhythm. Pulmonary Effort: Pulmonary effort is normal. No respiratory distress. Breath sounds: Normal breath sounds. No stridor. No wheezing, rhonchi or rales. Abdominal General: Bowel sounds are normal. There is no distension. Palpations: Abdomen is soft. There is no mass. Tenderness: There is no abdominal tenderness. There is no guarding or rebound. Musculoskeletal Right lower leg: No edema. Left lower leg: No edema. Lymphadenopathy Cervical: No cervical adenopathy. Upper Body: Right upper body: No supraclavicular or axillary adenopathy. Left upper body: No supraclavicular or axillary adenopathy. Lower Body: No right inguinal adenopathy. No left inguinal adenopathy. Skin General: Skin is warm and dry. Neurological General: No focal deficit present. Mental Status: He is alert and oriented to person, place, and time. Psychiatric Mood and Affect: Mood normal. Behavior: Behavior normal. Thought Content: Thought content normal. Judgment: Judgment normal. Wt Readings from Last 3 Encounters: 07/22/23 82.2 kg 12/29/22 81 kg 04/21/22 82.9 kg ASSESSMENT / PLAN #1 Lymphoma Mantle Cell (HCC) He is now 14 years out from diagnosis of mantle cell lymphoma, and nearly 12 years out from completion of maintenance rituximab. Labs were reviewed and show a mild stable normocytic anemia with no other cytopenias. No concerning findings on physical exam that would suggest recurrence. He will return for follow up in 6 months. We will continue to repeat imaging annually. He understands if we document recurrence of his mantle cell lymphoma, there are very tolerable effective options for treatmentwhich would likely be oral. #2 Anemia Hemoglobin has declined slightly further. Will check additional labs including ferritin, B12, folate. #3 Mass Kidney He previously had a Urology eConsult by Dr. Fields in 2016 who explained that the risk of metastasis and subsequent is less than 1% for tumors under 4 cm. This will be assessed at next CT imaging. I personally spent a total of 40 minutes in both face to face and non face to face activities including reviewing records and data, obtaining history, performing physical exam, counseling/education, discussion with colleagues, and coordination of care. documented in this encounter Plan of Treatment Scheduled Orders Name Type Priority Associated Diagnoses Order Schedule Alkaline Phosphatase Lab Routine Lymphoma Mantle Cell (HCC) Expected: 04/04/2024 (Approximate), Expires: 10/29/2024 AST (Aspartate Aminotransferase) Lab Routine Lymphoma Mantle Cell (HCC) Expected: 04/04/2024 (Approximate), Expires: 10/29/2024 Bilirubin, Total Lab Routine Lymphoma Mantle Cell (HCC) Expected: 04/04/2024 (Approximate), Expires: 10/29/2024 Calcium, Total Lab Routine Lymphoma Mantle Cell (HCC) Expected: 04/04/2024 (Approximate), Expires: 10/29/2024 CBC with Differential, Blood Lab Routine Lymphoma Mantle Cell (HCC) Expected: 04/04/2024 (Approximate), Expires: 10/29/2024 Creatinine with Estimated GFR Lab Routine Lymphoma Mantle Cell (HCC) Expected: 04/04/2024 (Approximate), Expires: 10/29/2024 LD (Lactate Dehydrogenase) Lab Routine Lymphoma Mantle Cell (HCC) Expected: 04/04/2024 (Approximate), Expires: 10/29/2024 CT Chest without IV Contrast Imaging RAD - Routine (most inpatients and all outpatients) Lymphoma Mantle Cell (HCC) Expected: 04/04/2024 (Approximate), Expires: 10/29/2024 CT Abdomen Pelvis without IV Contrast Imaging RAD - Routine (most inpatients and all outpatients) Lymphoma Mantle Cell (HCC) Expected: 04/04/2024 (Approximate), Expires: 10/29/2024 Scheduled Referrals Name Type Priority Associated Diagnoses Order Schedule Hematology office visit (clinic) [place]; Lymphoma; General Outpatient Referral Routine Lymphoma Mantle Cell (HCC) Expected: 04/04/2024 (Approximate), Expires: 10/29/2024 documented as of this encounter Procedures Procedure Name Priority Date/Time Associated Diagnosis Comments RETICULOCYTES, B Routine 07/22/2023 7:12 AM CDT Anemia FOLATE, S Routine 07/22/2023 7:12 AM CDT FERRITIN, S Routine 07/22/2023 7:12 AM CDT Anemia VITAMIN B12 ASSAY, S Routine 07/22/2023 7:12 AM CDT documented in this encounter Results * (ABNORMAL) Vitamin B12 Assay (07/22/2023 7:12 AM CDT) Vitamin B12 Assay, S 156(L) 180 - 914 ng/L 07/23/2023 9:22 AM CDT DTL Comment: ----ADDITIONAL INFORMATION---- In patients being evaluated [...] Jessica Ron APRN.N.P., M.S.N. LAB BLOOD ADD-ON [facility] [address] [place] [address], [facility] [address] [place] [address] * Folate (07/22/2023 7:12 AM CDT) Folate, S >20.0 >=4.0 mcg/L 07/23/2023 9: 21 AM CDT DTL Blood 07/22/2023 7:12 AM CDT 07/22/2023 11:42 AM CDT Stanley Mei APRN, C.N.P., M.S.N. LAB BLOOD ADD-ON Performing Organization Address City/[facility] Co de Phone Number [facility] [address] [facility] [address] [place] [address] * Reticulocytes (07/22/2023 7:12 AM CDT) Reticulocytes, B 1.29 0.60 - 2.71 % 07/22/2023 11:51 AM CDT DTL Absolute Reticulocyte 49.5 30.4 - 110.9 x10(9)/L 07/22/2023 11:51 AM CDT DTL Blood (Blood, Venous) 07/22/2023 7:12 AM CDT 07/22/2023 11:34 AM CDT Stanley Mei APRN, C.N.P., M.S.N. LAB BLOOD ADD-ON Performing Organization Address [facility] Co de Phone Number [facility] [address] [place] [address], [facility] [address] [place] [address] * Ferritin (07/22/2023 7:12 AM CDT) Ferritin, S 72 31 - 409 mcg/L 07/22/2023 12:19 PM CDT DTL Blood (Blood, Venous) 07/22/2023 7:12 AM CDT 07/22/2023 11:42 AM CDT Stanley Mei APRN, C.N.P., M.S.N. 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
--- OUTSIDE RECORDS SUMMARY | 2023-08-26 13:41 | XMS_ITS | Encounter Summary ---
Author Organization [facility] Address [address] [place] [address] Care Team Providers Care Advertising Dispatch Clerks Supervisor Name Role Phone Elsewhere, Pcp Primary Care Provider Unavailabl e Reason for Visit * Reason Onset Date Comments Pre-visit Intake 07/20/2023 Encounter Details Date Type Department Care Team (Latest Contact Info) Description 07/20/2023 8:15 AM CDT Clinical Communication Virtual Review in [place], [place] [address] [place] [address] Pre-visit Intake Social History Tobacco Use Types Packs/Day Years [...] on file documented as of this encounter Plan of Treatment Not on file documented as of this encounter Visit Diagnoses Not on filedocumented in this encounter Additional Health Concerns 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
--- OUTSIDE RECORDS SUMMARY | 2023-08-26 13:41 | XMS_ITS | Encounter Summary ---
Author Organization [facility] Address [address] [address] Phone Care Team Providers Care Vegetable Cutter Name Role Phone Radha Chaudhry RN Unavailable [phone] Karl Mcguire MD Unavailable [phone] Rdaha Chaudhry RN Unavailable [phone] Encounter Details Date Type Department Care Team (Late st Contact Info) Description 05/28/2016 Scanned - Medical Reports [facility] HIS [address] [place] [address] Elsewhere, Pcp Social History Tobacco [...] Comments EYE EXAM ESTABLISHED PATIENT COMPREHENSIVE Routine 05/12/2016 documented in this encounter Results * EYE EXAM & TREATMENT (05/12/2016) Pcp Elsewhere EC PROCEDURES documented in this encounter Visit Diagnoses Not on filedocumented in this encounter Care Teams Vegetable Cutter Relationship Specialty Start Date End Date Radha Chaudhry RN RN 06/26/11 Karl Mcguire MD [address] [place] [id number] Internal Medicine 09/16/11 Radha Chaudhry RN Transcript Clerk 12/12/21 documented as of this encounter
--- OUTSIDE RECORDS SUMMARY | 2023-08-26 13:41 | XMS_ITS | Referral Summary ---
Author Organization [facility] Address [address] [place] [address] Care Team Providers Care Fish Hatchery Inspector Name Role Phone Elsewhere, Pcp Primary Care Provider Unavailabl e Source Comments Patient records contain information from all sites at [facility]. For routine questions regarding patient records, call [phone] during business hours, M-F 8:00 AM - 5:00 PM Central Time. Record requests for emergency care only can be directed to [phone] at any time.[facility] Encounters Date Type Department Care Team Description 07/23/2023 Clinical Communication Division of Hematology in [address] [phone] Stanley Mei APRN, C.N.P., M.S.N. Results 07/22/2023 6:53 AM CDT - 07/22/2023 11:59 PM CDT Hospital Encounter Department of Laboratory Medicine and Pathology, [facility], in [address] [phone] Stanley Mei APRN, C.N.P., M.S.N. Lymphoma Mantle Cell (HCC) Discharge Disposition: Home or Self Care 07/22/2023 11:00 AM CDT Office Visit Division of Hematology in [address] [phone] Stanley Mei APRN, Jessica.N.P., M.S.N. Lymphoma Mantle Cell (HCC) (Primary Dx); Anemia; Mass Kidney 07/20/2023 8:15 AM CDT Clinical Communication Virtual Review in [place] [address] [facility] [place] [address] Pre-visit Intake from Last 3 Months Allergies Active Allergy Reactions Criticality Noted Date [...] 81 mg by mouth daily. Active multivitamin-mineral g-XU-hajypqlb-lutein (Centrum Silver) 0.4-300-250 mg-mcg-mcg tablet Take 1 [...] Type 2 02/19/2015 Lymphoma Mantle Cell 02/06/2010 Immunizations Name Administration Dates Next Due H1N1 All Forms 01/30/2009 Influenza Split 12/20/2012,12/21/2011,12/20/2010 ,01/20/2009 PPSV23 03/22/2007 Td, (Adult) Unspecified 2008 Tdap 08/21/2007 Social History Tobacco Use Types Packs/Day Years [...] DT Respiratory Rate 20 02/05/2012 8:42 AM OFFICE WORKFORCE PLANNER Oxygen Saturation 96% 07/22/2023 10:51 AM CDT Inhaled Oxygen Concentration - - Weight 82.2 kg (181 lb 3.5 oz) 07/22/2023 10:51 AM CDT Height 177.9 cm (5' 10.04) 07/22/2023 10:51 AM CDT Body Mass Index 25.97 07/22/2023 10:51 AM CDT Plan of Treatment Not on file Medical Devices Implanted Type Area Outside Plant Supervisor Device Identifier Shelf Expiration Date Model / [...] CDT 07/22/2023 7:39 AM CDT Stanley Mei APRN C.N.P., M.S.N. LAB BLOOD ADD-ON [facility] [address] [place] [address], [facility] D[facility] [address] [place] [address] [facility] [address] [place] [address] * AST (Aspartate Aminotransferase) (07/22/2023 7:15 AM CDT) Aspartate Aminotransferase (AST), S 13 8 - 48 U/L 07/22/2023 8:23 AM CDT DTL Blood (Blood, Venous) 07/22/2023 7:15 AM CDT 07/22/2023 7:54 AM CDT Stanley Mei APRN, C.N.P., M.S.N. LAB BLOOD ADD-ON [facility] [address] [place] [address] * Alkaline Phosphatase (07/22/2023 7:15 AM CDT) Alkaline Phosphatase, S 44 40 - 129 U/L 07/22/2023 8:23 AM CDT DTL Blood (Blood, Venous) 07/22/2023 7:15 AM CDT 07/22/2023 7:54 AM CDT Stanley Mei APRN, C.N.P., M.S.N. LAB BLOOD ADD-ON Performing Organization Address City/[facility]/ZIP Co de Phone Number [facility] [address] [place] [address] * LD (Lactate Dehydrogenase) (07/22/2023 7:15 AM CDT) Lactate Dehydrogenase (LD), S 130 122 - 222 U/L 07/22/2023 8:23 AM CDT DTL Blood (Blood, Venous) 07/22/2023 7:15 AM CDT 07/22/2023 7:54 AM CDT Stanley Mei APRN, C.N.P., M.S.N. LAB BLOOD NON ADD-ON [facility] [address] [place] [address], [facility] [address] [place] [address] * (ABNORMAL) Creatinine with Estimated GFR (07/22/2023 [...] LAB BLOOD ADD-ON Performing Organization Address City/[facility]/ZIP Co de Phone Number [address] [place] [address] * Calcium, Total (07/22/2023 7:15 AM CDT) Calcium, Total, S 9.6 8.8 - 10.2 mg/dL 07/22/2023 8:23 AM CDT DT Blood (Blood, Venous) 07/22/2023 7:15 AM CDT 07/22/2023 7:54 AM CDT Jessica Ron APRN.N.Effie., M.S.N. LAB BLOOD ADD-ON Performing Organization Address City/[facility]/ZIP Co de Phone Number [facility] [address] [place] [address], [place] [address] * Bilirubin, Total (07/22/2023 7:15 AM CDT) Bilirubin, Total, S 0.4 0.0 - 1.2 mg/dL 07/22/2023 8:23 AM CDT DT Blood (Blood, Venous) 07/22/2023 7:15 AM CDT 07/22/2023 7:54 AM CDT Stanley Mei APRN, C.N.P., M.S.N. LAB BLOOD ADD-ON [facility] [address] [place] [address], [facility] [address] [place] [address] * Reticulocytes (07/22/2023 7:12 AM CDT) Reticulocytes, B 1.29 0.60 - 2.71 % 07/22/2023 11:51 AM CDT DTL Absolute Reticulocyte 49.5 30.4 - 110.9 x10(9)/L 07/22/2023 11:51 AM CDT DTL Blood (Blood, Venous) 07/22/2023 7:12 AM CDT 07/22/2023 11:34 AM CDT Stanley Mei APRN, C.N.P., M.S.N. LAB BLOOD ADD-ON Performing Organization Address City/[facility]/ZIP Co de Phone Number [facility] [address] [place] [address], [facility] [address] [place] [address] * Folate (07/22/2023 7:12 AM CDT) Folate, S >20.0 >=4.0 mcg/L 07/23/2023 9: 21 AM CDT DTL Blood 07/22/2023 7:12 AM CDT 07/22/2023 11:42 AM CDT Stanley Mei APRN, C.N.P., M.S.N. LAB BLOOD ADD-ON [facility] [address] [place] [address] * Ferritin (07/22/2023 7:12 AM CDT) [facility] Ferritin, S 72 31 - 409 mcg/L 07/22/2023 12:19 PM CDT DT Blood (Blood, Venous) 07/22/2023 7:12 AM CDT 07/22/2023 11:42 AM CDT Stanley Mei APRN, C.N.P., M.S.[place] [address] * (ABNORMAL) Vitamin B12 Assay (07/22/2023 7:12 AM CDT) [facility] Vitamin B12 Assay, S 156(L) 180 - [...] Mei APRN, C.N.P., M.S.N. LAB BLOOD ADD-ON [facility] [address] [place], [place] [address] [place] [address] * Potassium (10/27/2021 7:20 AM CDT) Potassium, S 4.8 3.6 - 5.2 mmol/L 10/27/2021 8:25 AM CDT DTL Blood (Blood, Venous) 10/27/2021 7:20 AM CDT 10/27/2021 8:05 AM CDT Jessica Ron APRN.N.P., M.S.N. 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 See document viewer. Care Teams Fish Hatchery Inspector Relationship Specialty Start Date End Date Elsewhere, Pcp PCP - General Internal Medicine 07/20/23
[2023-08-26 17:38] LABS: Vitamin B12* 657 pg/mL (243-894)
== END 2023-08-26 13:36 | disposition home or self-care (01) ==
LOC: NPINS 13:35
PROVIDERS: PCP Family Medicine; Visit Provider Family Medicine
DX: C83.10 Mantle cell lymphoma, unspecified site (principal); E11.9 Type 2 diabetes mellitus without complications; N28.89 Other specified disorders of kidney and ureter
CPT/HCPCS: 82043; 82570; 82607

== ENCOUNTER 2024-01-10 11:00 | Outpatient (RCR) | payer MEDICARE, SELFPAY ==
--- NOTE | 2024-01-03 11:07 | PT.OPE ---
PT [place] [facility] Eval PT [facility] Outpatient Eval Start: 01/03/24 11:04 Freq: Status: Active Protocol: Document 01/03/24 11:04 BILL (Rec: 01/03/24 11:06 BILL [id number]) E-signed By Siddhartha Rascon DPT, MS Physical Therapy Outpatient Evaluation Insurance Information Recert Due Date 04/02/24 Insurance Name Medicare B,UCare Medical Diagnosis Benign paroxysmal vertigo, unspecified ear Treating Diagnosis Deconditioning, B LE, UE and core weakness, imbalance, and gait dysfunction Subjective Preferred Name Rock Vance Pt is an 88 yo male who presents to PT with c/o imbalance and difficulty with gait following an episode of BPPV that began 3 weeks ago. Pt describes high levels of dizziness and nausea without vomiting after getting out of bed that morning. Pt and his describe resolution of dizziness sxs with home Quincy maneuver tx provided by Dr. Yip but he remains off balance, especially with walking. Pt is active in his apartment walking in the dog park and walking with his 1-2x per day. 1 or 2 previous episodes of BPPV that resolved within a few days. Pt hopes to improve his balance and quality of gait prior to their river cruise in the [facility] in 2 weeks. Denies B LE neuropathy. PSH of R KEIRA. PMH includes controlled DM-II and lymphoma in remission HTN. AGGR factors : walking with head movement, uneven surfaces. ALLEV factors : rest, visual fixation while walking. Pain Comments None Current Work Status Retired Precautions Treatment Precautions/Contraindications STM; attended today?s session to assist. Therapy Limitations/Systems Review Cognition Objective Functional Test Performed & Score TUG without AD 12.8 sec DHI: 6 Assessment Assessment/Impression Objectively pt displays sensory disorganization, and static and dynamic imbalance. All BPPV testing negative with R posterior canal BPPV appearing to have resolved with home tx with pt displaying overreliance on his vision for balance. Recommended pt use his walking stick while walking on cobblestones for safety during his trip. He responded well to static and dynamic balance exercises with no elevation in dizziness sxs. He will benefit from continued skilled PT intervention to address these limitations. Primary Functional Limitations Walking with head movement, uneven surfaces. Plan of Care Physical Therapy Goals Long-term goals to be completed in 10 weeks 1.Pt will be independent and compliant with HEP 2.Pt will be able to walk >5 min with no incidents of imbalance to improve cardiovascular health. 3.Pt will display improved TUG testing <11 seconds to decrease falls risk 4.Pt will display improved B SLS >5 sec with mild sway to decrease falls risk. 5. Pt will report no incidents of dizziness for >6 consecutive days Treatment Plan/Direct Interventions Canalith Repositioning, Neuromuscular Re-ed, Therapeutic Exercises Frequency/Duration 1x per week for at least 4-8 visits, decreasing visit frequency as able. Patient Will Be Discharged From Therapy Completion of LTG(s),Skills Plateau,Independent w/HEP, Independently Progressing Evaluation Billing Untimed Code Treatment Minutes 24 Complexity Moderate Certification Information Initial Certification Date 01/03/24 Ending Certification Date 04/02/24 Provider Signature Required Yes Provider Signature Shows Agreement With POC & Medical Necessity Physician NPI Number Write NPI# Here Physician Comment/Change : Physician Signature & Date Requested Please Sign/Date Here
== END 2024-03-30 15:11 | disposition home or self-care (01) ==
PROVIDERS: PCP Family Medicine; Visit Provider Family Medicine
DX: H81.10 Benign paroxysmal vertigo, unspecified ear (principal); R26.9 Unspecified abnormalities of gait and mobility; R26.81 Unsteadiness on feet; R29.898 Other symptoms and signs involving the musculoskeletal system; R53.1 Weakness; Z51.89 Encounter for other specified aftercare
CPT/HCPCS: 97110; 97162

== ENCOUNTER 2024-02-18 16:55 | Outpatient (CLI) | payer MEDICARE, SELFPAY ==
--- OUTSIDE RECORDS SUMMARY | 2024-02-19 13:43 | XMS_ITS | Clinical Summary ---
Author Organization [facility] Address [address] [address] Phone Care Team Providers Care Registry Np Name Role Phone Radha Chaudhry RN Unavailable [phone] Karl Mcguire MD Unavailable [phone] Radha Chaudhry RN Unavailable [phone] Allergies Active Allergy Reactions Criticality Noted Date Comments Vancomycin Hcl RASH Medium 08/21/2010 Itching, swelling, peeling Medications Multiple Vitamin (MULTI VITAMIN MENS) TABS Take [...] 1 06/25/2020 Active losartan (Cozaar) 100 MG tabletIndicatio ns:Hypertension associated with diabetes (HCC) Take 1 Tablet [...] type II controlled with renal manifestation 11/09/2012 Overview (11/09/2012): Microalbuminuria associated with type II DM Microalbuminuria 04/20/2012 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 This has been in remission no evidence of recurrence. Resolved Problems Problem Noted Date Diagnosed Date Resolved Date Essential hypertension 11/01/201404/23 Diabetes mellitus with nephropathy 11/16/2012 11/01/2014 Overview (11/16/2012): Per 11/14/[address] Mcguire Diabetic nephropathy 11/14/2012 013 DM type 2 (diabetes mellitus, type 2) 02/06/2011 11/09/2012 Overview (07/11/2011): IMO Update 12/30 Health maintenance examination 12/11/2010 03/11/2016 Overview (07/11/2011): Colonoscopy August 2009. Recommend 3 year follow up IMO Update 12/30 Hypertension 10/21/2010 11/01/2014 Immunizations Name Administration Dates Next Due Influenza Fluzone High Dose (65+ Yrs) Quad PF (Flu Clinic) 01/10/2020 Influenza Fluzone High Dose (65+ Yrs) Tri PF (Flu Clinic) 01/04/2019,01/06/2017,01/18/2015 Influenza H1N1 Unspecified 04/16/2009,01/30/2009 Influenza Quad Preservative Free 12/12/2013 Influenza Trivalent Preservative Free 02/10/2013 ,12/24/2011 Influenza Trivalent Preserva tive Free (High Dose) 01/14/2018,01/18/2015,12/20/2012 Influenza Trivalent With Preservative ,02/10/2013,12/24/2011,2010,01/27/2007 Influenza Unspecified Formulation 01/06/2017,03/2010,01/20/2009 Pneumococcal Conjugate, (Prevnar)13-valent [...] APPROACH HIP; Surgeon: Angel Hager MD; Location: [facility] MAIN OR Medical devices from this surgery are in the Medical Devices section. BACK SURGERY 03/22/1997 - 03/21/1998 ELBOW SURGERY Right COLONOSCOPY 01/17/2018 N/A Procedure: COLONOSCOPY DIAGNOSTIC; Surgeon: Aj Morton MD; Location: [facility] ENDOSCOPY Medical History Medical History Date Comments [...] 2 Fibromuscular Dy splasia Cardiovascular Disease Mother [place], hyper tension, depression Anesthesia Reaction Negative Family Hx Bleeding Disorder Negative Family Hx Diabetes Negative Family Hx Relation Status Comments Brother 1 Alive Brother 2 (Age 86.5) Brother 3 Daughter 1 Alive Daughter 2 Alive Father (Age 90) Mother (Age 78) [place] Social History Tobacco Use Types Packs/Day Years Used Date Smoking Tobacco: Former Cigarettes Q uit: 196 Smokeless Tobacco: Never Tobacco Cessation:Counseling Given: No Alcohol Use Standard Drinks/Week Comments Yes 0 (1 standard drink = 0.6 oz pure alcohol) cocktail most fridays and occ beer the same night PHQ-2 Answer Date Recorded PHQ-2 Total 0 07/04/2020 Sex and Gender Information Value Date Recorded Sex Assigned at Not on file Legal Sex Male 2:15 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 Gender Identity Not on file Sexual Orientation Not on file Occupation Industry Job Start Date Job End Date Retired Not on file Not on file Not on file Obstetrics History Last Filed Vital Signs Vital Sign Reading Time Taken Comments Blood Pressure 146/86 07/04/2020 10:13 AM CDT Pulse 78 07/04/2020 10:13 AM CDT Temperature 37.1 C (98.8 F) 11/02/2019 9:21 AM CDT Respiratory Rate 18 12/29/2018 2:19 PM CDT [...] Vaccination (60+ yrs) (Abrysvo/Arexvy) (1 - 1-dose 75+ series) 08/21/2011 TETANUS (Standing Order) 2018 2008, 03/2007 MEDICARE AWV 04/27/2020 04/27/2019, 11/08/2017 DIABETES HGB A1C Q6 MONTHS (Standing Order) 12/25/2020 06/25/2020, 11/02/2019, 04/27/2019, Additional history exists DIABETES SERUM CREATININE Q1 YEAR (Standing Order) 06/25/2021 06/25/2020, 03/29/2020, 11/02/2019, Additional history exists COLONOSCOPY Q 5 YRS 01/17/2023 01/17/2018, 01/17/2018, 09/15/2012 (Previously completed), Additional history exists COVID-19 Vaccine ( season) 2023 Influenza Vaccine Seasonal (Standing Order) (#1) 2023 01/10/2020, 01/04/2019, 01/14/2018, Additional history exists [...] Problems Recent Progress Patient-Stated? Author Move to [facility] Kristin Thomas RN Medical Devices Implanted Type Area Chemical Economist Device Identifier Shelf Expiration Date Model / Serial / Lot Shell Acetabular 58mm Hip 4h Fin Pps G7 G [id number] - [id number] Implanted:Qty: 1 on 03/20/2016 by Angel Hager MD at [facility] Right: Hip BIOMET 07/02/2025 [id number] / NA / [id number] Liner Acet G7 G Neut 40mm Arcomxl Hip Color Coded [id number] - [id number] Implanted:Qty: 1 on 03/20/2016 by Angel Hager MD at [facility] Right: Hip BIOMET 01/13/2021 [id number] / [id number] / [id number] Screw G7 Acetabular 6.5mm X 30mm [id number] - [id number] Implanted:Qty: 1 on 03/20/2016 by Angel Hager MD at [facility] Right: Hip BIOMET 01/15/2026 [id number] / NA / [id number] Tprlc 133 Mp Rdcd Distal Type1 Pps So 14.0 [id number] - [id number] Implanted:Qty: 1 on 03/20/2016 by Angel Hager MD at [facility] Right: Hip BIOMET 11/19/2021 [id number] / [id number] / [id number] Femoral Head 40 Mm Minus 3 Selex Mag Mod Biomet [id number] - [id number] Implanted:Qty: 1 on 03/20/2016 by Angel Hager MD at [facility] Right: Hip BIOMET 10/20/2023 [id number] / [id number] / [id number] Procedures Procedure Name Priority Date/Time Associated Diagnosis Comments HEMOGLOBIN A1C STAT 06/25/2020 9:17 AM CDT 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, without long-term current use of insulin (HCC) COMPREHENSIVE METABOLIC PANEL STAT 06/25/2020 9:17 AM CDT 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, without long-term current use of insulin (HCC) COLONOSCOPY PROCEDURE 01/17/2018 9:20 AM CDT from Last 3 Months or Most Recently Relevant to Health Maintenance Results * (ABNORMAL) COMPREHENSIVE METABOLIC PANEL (06/25/2020 9:17 AM CDT) Sodium 141 134 - 143 mEq/L 06/25/2020 9:47 AM [facility] Potassium 4.2 3.4 - 5.1 mEq/L 06/25/2020 9:47 AM [facility] Chloride 106 99 - 110 mEq/L 06/25/2020 9:47 AM [facility] Carbon Dioxide 25 19 - 29 mEq/L 06/25/2020 9:47 AM [facility] Anion Gap 10.0 3.0 - 15.0 mEq/L 06/25/2020 9:47 AM [facility] Blood Urea Nitrogen 23 5 - 24 mg/dL 06/25/2020 9:47 AM [facility] Creatinine 1.30(H) 0.70 - 1.20 mg/dL 06/25/2020 9:47 AM [facility] Glomerular Filtration Rate 53(L) >60 mL/min/1. 73 m*2 06/25/2020 9:47 AM [facility] Comment:Complications of CKD and risk of cardiovascular disease increase when GFR is below 60ml.min/1.73m2. A persistently reduced GFR is a specific indication of Chronic Kidney Disease. The eGFR calculation has not been validated in patients >70yrs. Calcium 9.5 8.4 - 10.5 mg/dL 06/25/2020 9:47 AM [facility] Glucose 141(H) 70 - 99 mg/dL 06/25/2020 9:47 AM [facility] Protein, Total 7.0 6.0 - 8.0 g/dL 06/25/2020 9:47 AM [facility] Albumin 3.8 3.5 - 5.0 g/dL 06/25/2020 9:47 AM [facility] Alkaline Phosphatase 45 40 - 150 IU/L 06/25/2020 9:47 AM CDT [facility] Aspartate Aminotransferase 16 10 - 40 IU/L 06/25/2020 9:47 AM CDT [facility] Alanine Aminotransferase 15 6 - 40 IU/L 06/25/2020 9:47 AM CDT [facility] Bilirubin, Total 1.0 0.2 - 1.2 mg/dL 06/25/2020 9:47 AM CDT [facility] Blood BLOOD SPECIMEN / Unknown Venipuncture / Unknown 06/25/2020 9:17 AM CDT 06/25/2020 9:20 AM CDT Narrative [facility] - 06/25/2020 9:47 AM CDT Current ADA criteria for Glucose: Normal: 70-99 mg/dL Impaired Fasting Glucose: 100-125 mg/dL Diabetes Mellitus: at or above 126 mg/dL The diagnosis of diabetes must be confirmed on a subsequent day by measuring Fasting Plasma Glucose, 2-hr PG or random plasma glucose (if symptoms are present). us Karl Mcguire MD EC CHEMISTRY ORDERABLES Final Result [facility] [address] [address] * (ABNORMAL) HEMOGLOBIN A1C (06/25/2020 9:17 AM CDT) Hemoglobin A1c 7.0(H) 4.0 - 5.6 % 06/25/2020 9:28 AM CDT [facility] Estimated Average Glucose 154 mg/dL 06/25/2020 9:28 AM CDT [facility] Blood BLOOD SPECIMEN / Unknown Venipuncture / Unknown 06/25/2020 9:17 AM CDT 06/25/2020 9:20 AM CDT Narrative [facility] - 06/25/2020 9:28 AM CDT HGA1C Reference Ranges >= 6.5 Diabetes* 5.7-6.4 Impaired glucose tolerance <5.7 Normal *In the absence of unequivocal hyperglycemia, results should be confirmed by repeat testing for the diagnosis of diabetes. [place] [employer] 2018 us Karl Mcguire MD EC CHEMISTRY ORDERABLES ABN Fi nal Result [facility] [address] [address] * COLONOSCOPY PROCEDURE (01/17/2018 9:20 AM CDT) Colonoscopy Procedure [facility] Gastroenterology Patient Name: Stef Álvarez Date of : 1935 Patient Status: Outpatient Age: 82 Gender: Male Race: White Note Status: Finalized Procedure Date No Time: 01/17/2018 Procedure: Colonoscopy Endoscopist: AJ MORTON MD Referring MD: KARL MCGUIRE MD Indications: Surveillance: Personal history of adenomatous polyps on last colonoscopy 5 years ago Procedure Medications: Midazolam 3 mg IV, Fentanyl 100 micrograms IV Procedure: Pre-Anesthesia Assessment: - Airway Examination: Mallampati Class I (tonsillar pillars visualized). - Prior Anticoagulants: The patient has taken no previous anticoagulant or antiplatelet agents. - ASA Grade Assessment: III - A patient with severe systemic disease. - Potential procedural risks, benefits and alternatives were explained to the patient including: drug reactions, bleeding, perforation, and missing important lesions. Informed consent was confirmed and the patient was deemed in satisfactory condition to undergo the procedure. Throughout the procedure, the patient's blood pressure, pulse, and oxygen saturations were monitored continuously. The Olympus pediatric variable stiffness scope was passed under direct vision through the anus and advanced to the the cecum, identified by appendiceal orifice and ileocecal valve. The colonoscopy was performed without difficulty. The patient tolerated the procedure well. The quality of the bowel preparation was excellent. The ileocecal valve, appendiceal orifice, and rectum were photographed. Findings: The perianal and digital rectal examinations were normal. Multiple diverticula were found in the entire colon. The exam was otherwise without abnormality on direct and retroflexion views. Complications: No immediate complications. Moderate Sedation: Moderate (conscious) sedation was administered by the endoscopy nurse and supervised by the endoscopist. The patient's oxygen saturation, heart rate, blood pressure and response to care were monitored. Total physician intraservice time was 14 minutes. Impression: - Diverticulosis in the entire examined colon. - The examination was otherwise normal on direct and retroflexion views. - No specimens collected. Recommendation: - Patient has a contact number available for emergencies. The signs and symptoms of potential delayed complications were discussed with the patient. Return to normal activities tomorrow. Written discharge instructions were provided to the patient. - Resume previous diet. - Continue present medications. - No repeat colonoscopy due to age. Aj Morton M.D. __ AJ MORTON MD 01/17/2018 10:38:32 AM This report has been signed electronically. [address] [address] Procedure Report [facility] 01/17/2018 9:20 AM CDT us Aj Morton MD EC PROCEDURES Final Result EDMUND MARIA from Last 3 Months or Most Recently Relevant to Health Maintenance [place] [address] [address] [place] [id number] [facility] MEDICARE PLANS Advance Directives For more information, please contact: [phone] Documents on File Type Date Recorded Patient Organ Grinder Expl anation Advance Directives and Livin g Will 05/27/2010 9:39 AM * Full Code (Latest Code Status on File) Date Activated Date Inactivated Comments 03/20/2016 5:15 PM 03/22/2016 4:42 PM * Full Code Date Activated Date Inactivated Comments 03/20/2016 11:45 AM 03/20/2016 3:44 PM Care Teams Registry Np Relationship Specialty Start Date End Date Radha Chaudhry RN RN 06/26/11 Karl Mcguire MD [address] [place] [id number] Internal Medicine 09/16/11 Radha Chaudhry RN Scheduling Coordinator 12/12/21
--- OUTSIDE RECORDS SUMMARY | 2024-02-19 13:43 | XMS_ITS | Encounter Summary ---
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 Gender Identity Not on file Sexual Orientation Not on file Occupation Industry Job Start Date Job End Date Retired Not on file Not on file Not on file documented as of this encounter Functional Status * Patient's Vision Adequate to Safely Complete Daily Activities Answer Date of Assessment Author Yes 03/18/2016 2:40 PM JOINT MAKER MACHINE Anna Schumacher RN * Patient's Memory Adequate to Safely Complete Daily Activities Answer Date of Assessment Author Yes 03/18/2016 2:40 PM JOINT MAKER MACHINE Anna Schumacher RN documented as of this encounter Mental Status * Patient's Judgment Adequate to Safely Complete Daily Activities Answer Entry Date Author Yes 03/18/2016 2:40 PM JOINT MAKER MACHINE Anna Schumacher RN documented in this encounter Plan of Treatment Not on file documented as of this encounter Procedures Procedure Name Priority Date/Time Associated Diagnosis Comments EYE EXAM ESTABLISHED PATIENT COMPREHENSIVE Routine 05/12/2016 documented in this encounter Results * EYE EXAM & TREATMENT (05/12/2016) us Pcp Elsewhere EC PROCEDURES Final Result documented in this encounter Visit Diagnoses Not on filedocumented in this encounter Care Teams Dragline Engineer Relationship Specialty Start Date End Date Radha Chaudhry RN RN 06/26/11 Karl Mcguire MD [address] [place] [id number] Internal Medicine 09/16/11 Radha Chaudhry RN Cut Off Man 12/12/21 documented as of this encounter
--- OUTSIDE RECORDS SUMMARY | 2024-02-19 13:43 | XMS_ITS | Encounter Summary ---
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 Gender Identity Not on file Sexual Orientation Not on file Occupation Industry Job Start Date Job End Date Retired Not on file Not on file Not on file documented as of this encounter Functional Status * Patient's Vision Adequate to Safely Complete Daily Activities Answer Date of Assessment Author Yes 03/18/2016 2:40 PM BUILDING SPECIALIST Anna Schumacher RN * Patient's Memory Adequate to Safely Complete Daily Activities Answer Date of Assessment Author Yes 03/18/2016 2:40 PM BUILDING SPECIALIST Anna Schumacher RN documented as of this encounter Mental Status * Patient's Judgment Adequate to Safely Complete Daily Activities Answer Entry Date Author Yes 03/18/2016 2:40 PM BUILDING SPECIALIST Anna Schumacher RN documented in this encounter Plan of Treatment Not on file documented as of this encounter Procedures Procedure Name Priority Date/Time Associated Diagnosis Comments OUTSIDE LAB Routine 10/28/2016 documented in this encounter Results * OUTSIDE LAB (10/28/2016) us Pcp Elsewhere EC LABORATORY Final Result documented in this encounter Visit Diagnoses Not on filedocumented in this encounter Care Teams Apprentice Instrument Technician Relationship Specialty Start Date End Date Radha Chaudhry RN RN 06/26/11 Karl Mcguire MD [address] [place] [id number] Internal Medicine 09/16/11 Radha Chaudhry RN Immigration Coordinator 12/12/21 documented as of this encounter
--- OUTSIDE RECORDS SUMMARY | 2024-02-19 13:43 | XMS_ITS | Encounter Summary ---
Author Organization [facility] Address [address] [address] Phone Care Team Providers Care Compo Caster Name Role Phone Radha Chaudhry RN Unavailable [phone] Karl Mcguire MD Unavailable [phone] Radha Chaudhry RN Unavailable [phone] Encounter Details Date Type Department Care Team (Late st Contact Info) Description 05/06/2017 Scanned - Medical Reports 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 Gender Identity Not on file Sexual Orientation Not on file Occupation Industry Job Start Date Job End Date Retired Not on file Not on file Not on file documented as of this encounter Functional Status * Patient's Vision Adequate to Safely Complete Daily Activities Answer Date of Assessment Author Yes 03/18/2016 2:40 PM CHANNEL MARKETING COORDINATOR Anna Schumacher RN * Patient's Memory Adequate to Safely Complete Daily Activities Answer Date of Assessment Author Yes 03/18/2016 2:40 PM CHANNEL MARKETING COORDINATOR Anna Schumacher RN documented as of this encounter Mental Status * Patient's Judgment Adequate to Safely Complete Daily Activities Answer Entry Date Author Yes 03/18/2016 2:40 PM CHANNEL MARKETING COORDINATOR Anna Schumacher RN documented in this encounter Plan of Treatment Not on file documented as of this encounter Procedures Procedure Name Priority Date/Time Associated Diagnosis Comments EYE EXAM ESTABLISHED PATIENT COMPREHENSIVE Routine 04/13/2017 documented in this encounter Results * EYE EXAM & TREATMENT (04/13/2017) us Pcp Elsewhere EC PROCEDURES Final Result documented in this encounter Visit Diagnoses Not on filedocumented in this encounter Care Teams Compo Caster Relationship Specialty Start Date End Date Radha Chaudhry RN RN 06/26/11 Karl Mcguire MD [address] [place] [id number] Internal Medicine 09/16/11 Radha Chaudhry RN Supervisor Policy Change Clerks 12/12/21 documented as of this encounter
--- OUTSIDE RECORDS SUMMARY | 2024-02-19 13:43 | XMS_ITS | Continuity of Care Document ---
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 [place], [id number], [place]. [phone] [facility], [address] [place], [id number] , tel: [phone] [facility] eyeglasses, problem (chief complaint) Open angle with borderline findings, low risk, bilateralHyperme tropia of right eyeMyopia of left eyeNonexudative age-related macular degeneration, bilateral, early dry stageType 2 diabetes mellitus without complicationsAge -related nuclear cataract, bilateralCortica l age-related cataract, bilateral [address] [place], [id number], [place]. tel:[phone] Referring Provider: Chalino Rey, [address] [place], [address] . tel:[phone] [facility], [address] [place], [id number] , tel: [phone] [facility] difficulty reading (chief complaint) Type 2 diabetes [...] Allred. [address] [place], [id number], [place]. tel:[phone] Referring Provider: Chalino Rey, [address] [place], [address] . tel:[phone] [facility], [address] [place], [place], [id number] , [place] tel: [phone] [facility] difficulty reading (chief complaint) Type 2 diabetes [...] Allred. [address] [place], [place], [id number], [place]. tel:[phone] Referring Provider: Chalino Rey, [address] [place], [address] . tel:[phone] [facility], [address] [place], [place], [place], [id number] , [place] tel: [phone] [facility] Follow Up (chief complaint) Type 2 diabetes mellitus without complicationsAge -related nuclear cataract, bilateralPreglau coma, unspecified, bilateralDry eye syndrome of bilateral lacrimal glandsAngular blepharoconjunct ivitis, bilateralHyperme tropia, bilateralRegular astigmatism, left eyePresbyopiaPin guecula, left eye Apr- [address] [place], [place], [id number], [place]. tel:[phone] Referring Provider: Chalino Rey, [address] [place], [address] . tel:[phone] [facility], [address], [place], [id number] , tel: [phone] [facility] Blurred VA in OD (chief complaint) Type 2 diabetes mellitus without complicationsPre glaucoma, unspecified, bilateralAge-rel ated nuclear cataract, bilateralDry eye syndrome of bilateral lacrimal glandsAngular blepharoconjunct ivitis, bilateralHyperme tropia, bilateralRegular astigmatism, left eyePresbyopia [address], [place], [address]. tel:[phone] Referring Provider: Donaldo Alcala V, [address] [place], [address]. tel:[phone] [facility], [address], [place], [id number] , tel: [phone] [facility] Annual Diabetic Ocular Exam (chief complaint) Preglaucoma, unspecified, bilateralAge-rel ated nuclear cataract, bilateralType 2 diabetes mellitus without complicationsDry eye syndrome of bilateral lacrimal glandsHypermetro snow, bilateralRegular astigmatism, left eyePresbyopia [address], [place], [address]. tel:[phone] Referring Provider: Donaldo Alcala V, [address] [place], [place], [address]. tel:[phone] [facility], [address], [place], [id number] , tel: [phone] [facility] Annual Diabetic Ocular Exam (chief complaint) Type 2 diabetes mellitus without complicationsAge -related nuclear cataract, bilateralHyperme tropia, bilateralRegular astigmatism, bilateralPresbyo piaPreglaucoma, unspecified, bilateral Apr- [address], [place], [address]. tel:[phone] Referring Provider: Donaldo Alcala V, [address] [place], [address]. tel:[phone] [facility], [address], [place], [id number] , [place] tel: [phone] [facility] No Information No Information Family History Family Member Type Diagnosis Age At Onset Problem (finding) Family history of Parki nson's disease Problem (finding) Family history of degenerative disorder of macula Payers Payer name Insurance type Covered republican ID Miesha tompkins(s) [employer] Medicare Plans 2019 CI [id number] Social History Type Description Quantity Date Captured [...] No Information Instructions Date Instruction Additional Infor mation Impression/Plan Related to Myopi a of left eye Impression/Plan Related to Nonex udative age-related macular degeneration, bilateral, early dry stage Impression/Plan Related to Open angle with borderline findings, low risk, bilateral Impression/Plan Related to Hyper metropia of right eye Impression/Plan Related to Type 2 diabetes mellitus without complications Impression/Plan Related to Age-r elated nuclear cataract, bilateral Impression/Plan Related to Corti ken age-related cataract, bilateral Impression/Plan Related to Corti ken age-related cataract, bilateral Impression/Plan Related to Meibo yelena gland dysfunction left eye, upper and lower eyelids Impression/Plan Related to Meibo yelena gland dysfunction right eye, upper and lower eyelids Impression/Plan Related to [place] tochalasis of eyelid of left eye Impression/Plan Related to [place] tochalasis of eyelid of right eye Impression/Plan Related to Pingu ecula, left eye Impression/Plan Related to Age-r elated nuclear cataract, bilateral Impression/Plan Related to Open angle with borderline findings, low risk, bilateral Impression/Plan Related to terminal carman (current) use of oral hypoglycemic drugs Impression/Plan Related to Type 2 diabetes mellitus without complications Impression/Plan Related to Hyper metropia, bilateral Impression/Plan Related to Famil y history of other specified eye disorder Impression/Plan Related to Nonex udative age-related macular degeneration, bilateral, early dry stage Impression/Plan Related to Meibo yelena gland dysfunction [...] connective tissue of eyelid Impression/Plan Related to terminal carman (current) use of oral hypoglycemic drugs Impression/Plan [...] above. Rel ated to Angular blepharoconjunctivitis, bilateral Follow up - Return i n [address] Chalino Zayas for dry eye follow up. Impression/Plan Related to Hyper metropia, bilateral Impression/Plan Related to Regul ar astigmatism, left eye Impression/Plan Related to Presb yopia Impression/Plan Related to Presb yopia Impression/Plan - Pa mahad advised to control BS levels and seek annual DFE to monitor. Results sent to PCP. Related to Type 2 diabetes mellitus without complications Follow up - Return t o clinic in [address] Donaldo Alcala for annual diabetic eye exam Impression/Plan - Pa mahad tolerates well and [...] to Regul ar astigmatism, left eye Impression/Plan - Monitor. Relat ed to Preglaucoma, unspecified, bilateral Follow up - Return t o clinic with Dr. Donaldo Alcala in 1 year for annual eye exam Impression/Plan - Re commend artificial tears 2-3x/day. Related to Dry eye syndrome of bilateral lacrimal glands Impression/Plan - Pa tient advised to control BS levels and seek annual DFE to monitor. Results sent to PCP. Related to Type 2 diabetes mellitus without complications Impression/Plan - Pa tient tolerates well and not inclined to have surgery. Will monitor annually. Related to Age-related nuclear cataract, bilateral Impression/Plan - Monitor. Relat ed to Preglaucoma, unspecified, bilateral Impression/Plan Related to Presb yopia Impression/Plan Related to Regul ar astigmatism, left eye Impression/Plan - Bi focal SRx issued Related to Hypermetropia, bilateral Return to clinic in 1 year with [...]
--- OUTSIDE RECORDS SUMMARY | 2024-02-19 13:43 | XMS_ITS | Encounter Summary ---
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 Gender Identity Not on file Sexual Orientation Not on file Occupation Industry Job Start Date Job End Date Retired Not on file Not on file Not on file documented as of this encounter Functional Status * Patient's Vision Adequate to Safely Complete Daily Activities Answer Date of Assessment Author Yes 03/18/2016 2:40 PM Anna Lee RN * Patient's Memory Adequate to Safely Complete Daily Activities Answer Date of Assessment Author Yes 03/18/2016 2:40 PM Anna Lee RN documented as of this encounter Mental Status * Patient's Judgment Adequate to Safely Complete Daily Activities Answer Entry Date Author Yes 03/18/2016 2:40 PM Anna Lee RN documented in this encounter Plan of Treatment Not on file documented as of this encounter Procedures Procedure Name Priority Date/Time Associated Diagnosis Comments EYE EXAM ESTABLISHED PATIENT COMPREHENSIVE Routine 05/10/2018 documented in this encounter Results * EYE EXAM & TREATMENT (05/10/2018) us Provider Abstract MD MAYER PROCEDURES Final Resul t documented in this encounter Visit Diagnoses Not on filedocumented in this encounter Care Teams Venetian Blind Maker Relationship Specialty Start Date End Date Radha Chaudhry RN RN 06/26/11 Karl Mcguire MD [address] [place] [address] Internal Medicine 09/16/11 Radha Chaudhry RN Premium Card Cancellation Clerk 12/12/21 documented as of this encounter
--- OUTSIDE RECORDS SUMMARY | 2024-02-19 13:43 | XMS_ITS | Continuity of Care Document ---
Author Name [facility] Organization [facility] Care Team Providers Care Contracts Attorney Name Role Phone [facility] Unavailable Unavailable Problems Combined list of problems from Department of Defense and Veterans Affairs facilities. It does not include entries that were removed or entered in error. Problem Status Onset Date Problem Type Date of Resolution Comments Source Cancer of skin Active Condition [facility] Essential hypertension Active Condition [facility] Essential hypertension (SNOMED [place] 40069337) Active Condition [facility] Gout Active Condition [facility] Gout (SNOMED [place] 53036001) Active Condition [facility] Hyperlipidemia Active Condition [facility] Hyperlipidemia (SNOMED CT 09643583) Active Condition [facility] Impotence (SNOMED CT 718945480) Active Condition [facility] Mantle cell lymphoma Active Condition [facility] 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, 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: ZULAY LOCO Comment: stage IV [facility] Microalbuminuric diabetic nephropathy Active Condition [facility] 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 Medication Details Route Status Patient Instructions Prescription Expires Prescription Number Last Dispense Date Ordering Provider Order Date Order Qty Source AMLODIPINE BESYLATE 2.5MG TAB TAKE TWO TABLETS BY MOUTH EVERY DAY ORAL ACTIVE Sarah BUSTOS 2022 [facility] ASPIRIN 81MG TAB,CHEWABL E CHEW ONE TABLET BY MOUTH EVERY DAY ORAL ACTIVE ROQUE LARSEN 2020 [facility] ASPIRIN 81MG TAB,EC TAKE ONE TABLET BY MOUTH DAILY ORAL ACTIVE PEDRO CASTAÑEDA 2019 [facility] ATORVASTATI N CA 80MG TAB TAKE ONE-HALF TABLET BY MOUTH EVERY DAY ORAL ACTIVE ROQUE LARSEN 2020 [facility] ATORVASTATI N CA 80MG TAB TAKE ONE-HALF TABLET BY MOUTH DAILY ORAL ACTIVE CLINT LOCO 2013 [facility] CHONDROITIN /GLUCOSAMIN E CAP/TAB TAKE BY MOUTH DAILY ORAL ACTIVE CLINT LOCO 2013 [facility] DESONIDE 0.05% LOTION APPLY ADEQUATE AMOUNT TO AFFECTED AREA PRN TOPICA L ACTIVE Roby INGRAM 2014 [facility] FISH OIL CONC CAP,ORAL TAKE BY MOUTH DAILY ORAL ACTIVE CLINT LOCO 2013 [facility] LOSARTAN 50MG TAB TAKE TWO TABLETS BY MOUTH EVERY DAY ORAL ACTIVE ROQUE LARSEN 2020 [facility] LOSARTAN POTASSIUM 100MG TAB TAKE ONE TABLET BY MOUTH DAILY ORAL ACTIVE PEDRO CASTAÑEDA 2017 [facility] METFORMIN HCL 500MG 24HR TAB,SA TAKE TWO TABLETS BY MOUTH EVERY DAY ORAL ACTIVE ROQUE LARSEN B 2020 [facility] METFORMIN HCL 500MG 24HR TAB,SA TAKE TWO TABLETS BY MOUTH DAILY ORAL ACTIVE SHERRELL PALMER 2015 [facility] MULTIVITAMI N/MINERALS TAB TAKE BY MOUTH DAILY ORAL ACTIVE CLINT LOCO 2013 [facility] Allergies, Adverse Reactions, Alerts Combined list of allergies from Department of Defense and Veterans Affairs facilities. It does not include entries that were removed or entered in error. Substance Category Reaction Severity Reaction type Status Date Reported Comments Source LISINOPRIL Propensity to adverse reactions to drug (finding) Cough active 07/03/2013 [facility] Immunizations Combined list of available immunizations from the Department of [facility] and [facility] facilities. Immunization Series Date Given Administered By Site Reaction Lot Number CVX Code Drug Regional Environmental Manager Status Comments Source ZOSTER RECOMBINANT 2 2022 LIZZY MCLAUGHLIN LEFT DELTO ID [id number] 187 complet ed ENTER DILUENT LOT# [id number] [facility] COVID-19 ([employer]), MRNA, LNP-S, BIVALENT BOOSTER, PF, 30 MCG/0.3 ML DOSE 1 2022 ZEUS PERALTA WILVER LEFT DELTO ID [id number] 300 complet ed [facility] ZOSTER RECOMBINANT 1 2022 ERIK VILLANUEVA RIGHT DELTO ID [id number] 187 complet ed [id number] [facility] PNEUMOCOCCAL CONJUGATE PCV20, POLYSACCHARID E [id number] CONJUGATE, ADJUVANT, PF 2022 ERIK VILLANUEVA RIGHT DELTO ID [id number] 216 complet ed [facility] TDAP 2022 115 complet ed [facility] INFLUENZA, UNSPECIFIED FORMULATION 2021 88 complet ed [facility] COVID-19 ([employer]), MRNA, LNP-S, PF, 30 MCG/0.3 ML DOSE 3 2021 208 complet ed [facility] COVID-19 ([employer]), MRNA, LNP-S, PF, 30 MCG/0.3 ML DOSE 3 2020 208 complet ed PFR; [id number]; [id number] [facility] INFLUENZA, INJECTABLE, QUADRIVALENT, PRESERVATIVE FREE 2020 150 complet ed [facility] COVID-19 (MODERNA), MRNA, LNP-S, PF, 100 MCG/0.5 ML DOSE 2 2020 207 complet ed [facility] COVID-19 (MODERNA), MRNA, LNP-S, PF, 100 MCG/0.5 ML DOSE 1 2020 207 complet ed [facility] ZOSTER RECOMBINANT 2 2018 187 complet ed [facility] INFLUENZA, HIGH DOSE SEASONAL 2018 135 complet ed [facility] ZOSTER RECOMBINANT 1 2018 187 complet ed [facility] INFLUENZA, SEASONAL, INJECTABLE 2014 141 complet ed [facility] PNEUMOCOCCAL CONJUGATE PCV 13 2014 133 complet ed [facility] INFLUENZA, SEASONAL, INJECTABLE 2013 141 complet ed [facility] TDAP 2013 115 complet ed San[employer]i Pasteur lot#[id number] BA exp2014 [facility] ZOSTER LIVE 2013 121 complet ed [employer]lot#[id number] exp2013 [facility] INFLUENZA, UNSPECIFIED FORMULATION 2012 88 complet ed [facility] INFLUENZA, UNSPECIFIED FORMULATION 2010 88 complet ed [facility] INFLUENZA-H1N 1-09, NOVEL (PANDEMIC) (HISTORICAL) 2009 complet ed [facility] INFLUENZA (HISTORICAL) 2008 88 complet ed [facility] TD(ADULT) UNSPECIFIED FORMULATION 2008 139 complet ed [facility] PNEUMOCOCCAL, UNSPECIFIED FORMULATION 2007 109 complet ed [employer] lot#[id number] exp [facility] INFLUENZA, UNSPECIFIED FORMULATION 2007 88 complet ed [facility] INFLUENZA, UNSPECIFIED FORMULATION 2006 88 complet ed [facility] INFLUENZA, UNSPECIFIED FORMULATION 2005 88 complet ed [facility] INFLUENZA, UNSPECIFIED FORMULATION 2004 88 complet ed [facility] INFLUENZA, UNSPECIFIED FORMULATION 2002 88 complet ed [facility] TD(ADULT) UNSPECIFIED FORMULATION 2002 139 complet ed [facility] INFLUENZA, UNSPECIFIED FORMULATION 2001 88 complet ed [facility] TETANUS TOXOID, UNSPECIFIED FORMULATION 1995 112 complet ed [facility] Encounters Combined list of: 1) Encounters from Department of Veterans Affairs facilities going back up to thelast 18 months. 2) Encounters from the Department of [facility] facilities going back up to 280 months. Location Location Details Encounter Type Encounter Number Reason For Visit Attending Provider ADM Date DC Date Status Disposition Source [facility] Outpatient Encounter [id number] [facility] Social History Combined list of available smoking, tobacco, and other social history from Department of [facility] and [facility] facilities. Social History Type Response Date Comment Sourc e Tobacco smoking status NHIS OK-TOBACCO FORMER USER 04/02/2022 [facility] History of tobacco use OK-TOBACCO QUIT 15 YRS OR MORE 04/02/2022 [facility] History of tobacco use OK-TOBACCO FORMER USER 01/09/2021 [facility] History of tobacco use OK-TOBACCO FORMER USER 12/07/2019 [facility] History of tobacco use OK-TOBACCO QUIT 15 YRS OR MORE 10/18/2018 [facility] History of tobacco use FORMER TOBACCO USER 7Y OR GREATER 08/04/2006 [facility] History of tobacco use LIFETIME NON-SMOKER/QUIT 7 YRS OR> 07/16/2003 [facility] History of tobacco use LIFETIME NON-SMOKER/QUIT 7 YRS OR> 07/21/2002 quit 40 yrs ago [facility] Advance Directives List of completed, amended, or rescinded Advance Directives on record at [facility] facilities. An actual copy of the Directive is not included. Date Advance Directive Provider Source 09/19/2010 ADVANCE DIRECTIVE DISCUSSION CEZAR SALGUERO [facility] 03/08/2006 ADVANCE DIRECTIVE JOYCE PEÑA [facility]
== END 2024-02-18 16:56 | disposition home or self-care (01) ==
LOC: NFLDREF 02-19 13:41
PROVIDERS: PCP Family Medicine; Referring Provider Family Medicine; Visit Provider Family Medicine
DX: R53.83 Other fatigue (principal); R29.898 Other symptoms and signs involving the musculoskeletal system
CPT/HCPCS: 84443

== ENCOUNTER 2024-03-06 08:16 | Outpatient (CLI) | payer MEDICARE, SELFPAY | END 2024-03-06 08:17 | disposition home or self-care (01) | LOC: NFLDREF 17:51 | PROVIDERS: PCP Family Medicine; Referring Provider Family Medicine; Visit Provider Family Medicine | DX: I10 Essential (primary) hypertension (principal); E78.00 Pure hypercholesterolemia, unspecified; N40.0 Benign prostatic hyperplasia without lower urinary tract symptoms; E11.65 Type 2 diabetes mellitus with hyperglycemia; Z79.84 Long term (current) use of oral hypoglycemic drugs; Z12.5 Encounter for screening for malignant neoplasm of prostate | CPT/HCPCS: 80053; 80061; 82043; 82570; G0103 ==

== ENCOUNTER 2024-03-09 13:31 | Outpatient (CLI) | payer MEDICARE, SELFPAY | END 2024-03-09 13:32 | disposition home or self-care (01) | PROVIDERS: PCP Family Medicine; Visit Provider Family Medicine | DX: D64.9 Anemia, unspecified (principal) | CPT/HCPCS: 82728; 83540 ==

== ENCOUNTER 2024-03-27 12:20 | Outpatient (CLI) | payer MEDICARE, SELFPAY | END 2024-03-27 12:21 | disposition home or self-care (01) | LOC: US 12:21 | PROVIDERS: PCP Family Medicine; Visit Provider Family Medicine | DX: R29.898 Other symptoms and signs involving the musculoskeletal system (principal); M79.662 Pain in left lower leg; M79.661 Pain in right lower leg; R20.0 Anesthesia of skin; E11.40 Type 2 diabetes mellitus with diabetic neuropathy, unspecified; D64.9 Anemia, unspecified | CPT/HCPCS: 93924 ==

== ENCOUNTER 2024-04-12 13:00 | Outpatient (RCR) | payer MEDICARE, SELFPAY ==
--- NOTE | 2024-03-31 09:07 | PT.OPE ---
PT [place] [facility] Eval PT [facility] Out[facility] Eval Start: 03/30/24 14:36 Freq: Status: Active Protocol: Document 03/30/24 14:36 BILL (Rec: 03/30/24 14:40 BILL [id number]) E-signed By Siddhartha Rascon DPT, MS Physical Therapy Outpatient Evaluation Insurance Information Recert Due Date 06/28/24 Insurance Name Medicare B,Blue [employer] Medical Diagnosis Unsteadiness on feet; other symptoms and signs involving the musculoskeletal system Treating Diagnosis Deconditioning, B LE and core weakness, imbalance, and gait dysfunction Subjective Preferred Name Rock Vance Pt is an 88 yo male who presents to PT with c/o progressively worsening imbalance and difficulty with gait over the past 3 years. Imbalance increased following episode of BPPV in the fall of 2023. Pt describes walking 3 miles most days before moving from [facility] to an apartment in [place] to be closer to family. Walks during the warmer months but lives a mostly sedentary lifestyle. Has had 3-4 falls over the past year after catching his R toes while walking. Pt?s brothers have a PMH of PD and he is on a waitlist at [facility] for an evaluation but his and pt do not believe he has PD sxs. Denies B LE neuropathy. PSH of R KEIRA. PMH includes controlled DM-II and lymphoma in remission HTN . AGGR factors: extended walking and standing, walking with head movement, uneven surfaces, getting out of recliners. ALLEV factors: rest , visual fixation while walking. Pain Comments 0/10 Current Work Status Retired Precautions Treatment Precautions/Contraindications STM; attended today?s session to assist. Therapy Limitations/Systems Review Cognition Objective Functional Test Performed & Score TU.3 sec Assessment Assessment/Impression Objectively pt displays B LE weakness and decreased endurance, sensory disorganization, and static and dynamic imbalance. Decreased activity levels appear to have led to worsening imbalance and deconditioning. Improved quality of sit<>stand transfers with cueing and practice. Recommended pt use his walking stick and cane for amb outside of his home to prevent falls. Provided pt and his with information to purchase a Cubii for cardiovascular exercise and LE strengthening due to pt not wanting to go to the gym. He responded well to NuStep, LE strengthening, and static and dynamic balance exercises with fatigue following. He will benefit from continued skilled PT intervention to address these limitations. Primary Functional Limitations Extended walking and standing, walking with head movement, uneven surfaces, getting out of recliners. Plan of Care Rehabilitation Potential Excellent Physical Therapy Goals Long-term goals to be completed in 10 weeks 1.Pt will be independent and compliant with HEP 2.Pt will be able to walk >5 min with a SPC with no incidents of imbalance to improve cardiovascular health. 3.Pt will display improved TUG testing <11 seconds to decrease falls risk 4.Pt will display improved B SLS >5 sec with mild sway to decrease falls risk. Coordination/Communication With Referral Source Treatment Plan/Direct Interventions Neuromuscular Re-ed, Therapeutic Exercises Frequency/Duration 1x per week for at least 6-10 visits, decreasing visit frequency as able. Patient Will Be Discharged From Therapy Completion of LTG(s),Skills Plateau,Independent w/HEP, Independently Progressing Evaluation Billing Untimed Code Treatment Minutes 24 Complexity Moderate Certification Information Initial Certification Date 03/30/24 Ending Certification Date 06/28/24 Provider Signature Required Yes Provider Signature Shows Agreement With POC & Medical Necessity Physician NPI Number Write NPI# Here Physician Comment/Change : Physician Signature & Date Requested Please Sign/Date Here
== END 2024-08-10 23:59 | disposition home or self-care (01) ==
PROVIDERS: PCP Family Medicine; Visit Provider Family Medicine
DX: R26.81 Unsteadiness on feet (principal); R29.898 Other symptoms and signs involving the musculoskeletal system; R26.89 Other abnormalities of gait and mobility; R53.1 Weakness; Z51.89 Encounter for other specified aftercare
CPT/HCPCS: 97110; 97162

== ENCOUNTER 2024-07-19 13:25 | Outpatient (CLI) | payer MEDICARE, SELFPAY | END 2024-07-19 13:26 | disposition home or self-care (01) | PROVIDERS: PCP Family Medicine; Visit Provider Family Medicine | DX: R01.1 Cardiac murmur, unspecified (principal); I51.7 Cardiomegaly; I35.1 Nonrheumatic aortic (valve) insufficiency; I35.0 Nonrheumatic aortic (valve) stenosis | CPT/HCPCS: 93306 ==

== ENCOUNTER 2025-02-26 08:57 | Outpatient (CLI) | payer MEDICARE, SELFPAY | END 2025-02-26 08:58 | disposition home or self-care (01) | LOC: NFLDREF 03-02 10:30 | PROVIDERS: PCP Family Medicine; Referring Provider Family Medicine; Visit Provider Family Medicine | DX: E78.00 Pure hypercholesterolemia, unspecified (principal); I10 Essential (primary) hypertension; E11.9 Type 2 diabetes mellitus without complications | CPT/HCPCS: 80053; 80061; 82043; 82570; 82607; 82728; 83540; G0103 ==

== ENCOUNTER 2025-03-01 13:46 | Outpatient (CLI) | payer MEDICARE, SELFPAY | END 2025-03-01 13:47 | disposition home or self-care (01) | LOC: NFLDREF 03-07 09:08 | PROVIDERS: PCP Family Medicine; Referring Provider Family Medicine; Visit Provider Family Medicine | DX: D64.9 Anemia, unspecified (principal) | CPT/HCPCS: 82043; 82570 ==